=== PATIENT | female | born 1990 | race Caucasian/White ===

== ENCOUNTER 2017-06-25 17:03 | Emergency (ER) | payer MEDICAID ==
[~2017-06-25] VITALS: Ht 170.2 cm; Wt 113.4 kg
[~2017-06-25 17:03] MED LIST: ARIP30TA7 PO; CYCL-1 PO; GABA600T2 PO; HYDR-565 PO; LANTUS SQ; METO-292 PO; PROC-8 PO; PROP10TA10 PO; TRAZ300T2 PO
[2017-06-25 18:12] LABS: BASOPHILS % (AUTO) 0.4 % (0-1); EOSINOPHILS # (AUTO) 0.2 X10'3 (0-0.9); HEMATOCRIT 38.5 % (35.0-45.0); HEMOGLOBIN 13.3 g/dl (12.0-16.0); LYMPHOCYTES % (AUTO) 23.7 % (21-51); MEAN CORPUSCULAR HEMOGLOBIN 30.1 PG (27.0-31.0); MEAN CORPUSCULAR HGB CONC 34.6 % (33.0-36.5); MEAN CORPUSCULAR VOLUME 86.9 FL (78-98); MEAN PLATELET VOLUME 7.5 FL (7.4-10.4); MONOCYTES # (AUTO) 0.4 X10'3 (0-0.9); MONOCYTES % (AUTO) 5.4 % (2-12); NEUTROPHILS # (AUTO) 5.6 X10'3 (1.8-7.7); NEUTROPHILS % (AUTO) 68.5 % (42-75); PLATELET COUNT 272 X10'3 (140-440); RED BLOOD COUNT 4.43 X10'6 (4.20-5.60); RED CELL DISTRIBUTION WIDTH 13.9 % (11.5-14.5); WHITE BLOOD COUNT 8.2 X10'3 (4.5-11.0)
[2017-06-25 18:16] LABS: URINE HCG NEGATIVE (NEG)
[2017-06-25 18:18] LABS: CLARITY,URINE CLEAR (Clear); COLOR,URINE YELLOW (Yellow); GLUCOSE, URINE NEGATIVE (Neg); KETONES,URINE NEGATIVE (Neg); LEUKOCYTE ESTERASE ,URINE NEGATIVE (Neg); NITRITES, URINE NEGATIVE (Neg); OCCULT BLOOD,URINE NEGATIVE (Neg); PROTEIN,URINE NEGATIVE (Neg); UROBILINOGEN,URINE 0.2 E.U/dL (0.2-1.0)
[2017-06-25 18:22] LABS: INR 0.9 INR; PROTHROMBIN TIME 9.7 SECONDS (9.0-12.0)
[2017-06-25 18:22] LABS: UA COLLECTION TYPE NON-SPECIFIED
[2017-06-25 18:26] LABS: ALANINE AMINOTRANSFERASE 180 U/L (12-78); ALBUMIN 4.3 G/DL (3.4-5.0); ALBUMIN/GLOBULIN RATIO 1.1 (1.1-1.5); ALKALINE PHOSPHATASE 168 IU/L (46-116); ANION GAP 8 (8-16); ASPARTATE AMINO TRANSFERASE 89 U/L (10-37); BILIRUBIN,TOTAL 0.5 MG/DL (0.1-1.0); BLOOD UREA NITROGEN 12 MG/DL (7-18); BUN/CREATININE RATIO 16.9 (6.6-38.0); CALCIUM 10.1 MG/DL (8.5-10.1); CHLORIDE 101 MMOL/L (99-107); CREATININE 0.71 MG/DL (0.40-0.90); GLUCOSE 226 MG/DL (70-104); SODIUM 140 MMOL/L (135-145); TOTAL CARBON DIOXIDE 31.2 MMOL/L (24-32); TOTAL PROTEIN 8.2 G/DL (6.4-8.2); eGFR > 90 ML/MIN
[2017-06-25] MEDS ORDERED: morphine 5 MG/ML injection IV ONE (19:50)
[2017-06-25] MEDS ORDERED: diphenhydrAMINE 50 mg/ml inj IV ONE (19:50)
[2017-06-25] MEDS ORDERED: LORazepam 2 mg/ml vial IV ONE (19:50)
[2017-06-25] MEDS ORDERED: metoclopramide 5 mg/ml inj IV ONE (19:50)
[2017-06-25] MEDS ORDERED: normal saline 1000ML IV soln IVB ONE ×2 (19:50)
[2017-06-25 21:11] VITALS: BP 149/104
== END 2017-06-25 21:12 | disposition home or self-care (01) ==
LOC: ER 17:04
DX: R10.31 Right lower quadrant pain (principal); R11.2 Nausea with vomiting, unspecified; K21.9 Gastro-esophageal reflux disease without esophagitis; E11.9 Type 2 diabetes mellitus without complications; E78.00 Pure hypercholesterolemia, unspecified; G89.29 Other chronic pain; Z87.891 Personal history of nicotine dependence; Z90.49 Acquired absence of other specified parts of digestive tract; Z90.710 Acquired absence of both cervix and uterus; Z98.890 Other specified postprocedural states; Z79.4 Long term (current) use of insulin; Z88.0 Allergy status to penicillin; Z88.6 Allergy status to analgesic agent
CPT/HCPCS: 36415; 80053; 81003; 81025; 85025; 85610; 96361; 96374; 96375; 99284; J1200; J2060; J2270; J2765; J7030

== ENCOUNTER 2017-07-06 20:20 | Emergency (ER) | payer MEDICAID ==
[~2017-07-06] VITALS: Ht 170.2 cm; Wt 115.9 kg
[2017-07-06 21:42] LABS: BASOPHILS # (AUTO) 0.1 X10'3 (0-0.2); BASOPHILS % (AUTO) 1.1 % (0-1); EOSINOPHILS # (AUTO) 0.1 X10'3 (0-0.9); HEMATOCRIT 41.6 % (35.0-45.0); HEMOGLOBIN 14.4 g/dl (12.0-16.0); LYMPHOCYTES # (AUTO) 2.5 X10'3 (1.1-4.8); LYMPHOCYTES % (AUTO) 23.7 % (21-51); MEAN CORPUSCULAR HEMOGLOBIN 30.3 PG (27.0-31.0); MEAN CORPUSCULAR HGB CONC 34.5 % (33.0-36.5); MEAN CORPUSCULAR VOLUME 87.6 FL (78-98); MEAN PLATELET VOLUME 7.8 FL (7.4-10.4); MONOCYTES # (AUTO) 0.6 X10'3 (0-0.9); MONOCYTES % (AUTO) 5.9 % (2-12); NEUTROPHILS # (AUTO) 7.1 X10'3 (1.8-7.7); NEUTROPHILS % (AUTO) 68.3 % (42-75); PLATELET COUNT 298 X10'3 (140-440); RED BLOOD COUNT 4.74 X10'6 (4.20-5.60); RED CELL DISTRIBUTION WIDTH 13.9 % (11.5-14.5); WHITE BLOOD COUNT 10.4 X10'3 (4.5-11.0)
[2017-07-06 21:53] LABS: PROTHROMBIN TIME 9.9 SECONDS (9.0-12.0)
[2017-07-06 21:57] LABS: ALANINE AMINOTRANSFERASE 118 U/L (12-78); ALBUMIN 4.2 G/DL (3.4-5.0); ALKALINE PHOSPHATASE 185 IU/L (46-116); ANION GAP 10 (8-16); ASPARTATE AMINO TRANSFERASE 38 U/L (10-37); BILIRUBIN,TOTAL 0.5 MG/DL (0.1-1.0); BLOOD UREA NITROGEN 17 MG/DL (7-18); BUN/CREATININE RATIO 21.3 (6.6-38.0); CHLORIDE 96 MMOL/L (99-107); GLUCOSE 342 MG/DL (70-104); POTASSIUM 3.7 MMOL/L (3.5-5.1); SODIUM 134 MMOL/L (135-145); TOTAL CARBON DIOXIDE 27.7 MMOL/L (24-32); TOTAL PROTEIN 8.5 G/DL (6.4-8.2); eGFR 85 ML/MIN
[2017-07-06] MEDS ORDERED: LORazepam 2 mg/ml vial IV ONE (22:05)
[2017-07-06] MEDS ORDERED: normal saline 1000ML IV soln IVB ONE (22:05)
[2017-07-06] MEDS ORDERED: diphenhydrAMINE 50 mg/ml inj IV ONE (22:05)
[2017-07-06] MEDS ORDERED: haloperidol lactate 5mg/ml inj IM ONE (22:05)
[2017-07-06 22:18] LABS: CLARITY,URINE Clear (Clear); COLOR,URINE Yellow (Yellow); GLUCOSE, URINE 500 mg/dl (Neg); KETONES,URINE Trace mg/dl (Neg); LEUKOCYTE ESTERASE ,URINE Negative (Neg); NITRITES, URINE Negative (Neg); OCCULT BLOOD,URINE Negative (Neg); PROTEIN,URINE Negative (Neg); UA COLLECTION TYPE CLN CATCH MIDSTREAM
[2017-07-06 22:20] LABS: LIPASE 255 U/L (73-393)
[2017-07-06] MEDS ORDERED: LIDOcaine Viscous 15ml cup PO ONE (23:10)
[2017-07-06] MEDS ORDERED: mag hydrox/Alum hydrox/simeth 30ml oral suspension PO ONE (23:10)
[2017-07-06 23:59] VITALS: BP 130/93
== END 2017-07-07 00:08 | disposition home or self-care (01) ==
LOC: ER 20:20
DX: R10.12 Left upper quadrant pain (principal); R11.2 Nausea with vomiting, unspecified; K21.9 Gastro-esophageal reflux disease without esophagitis; E11.9 Type 2 diabetes mellitus without complications; E78.00 Pure hypercholesterolemia, unspecified; G89.29 Other chronic pain; Z90.49 Acquired absence of other specified parts of digestive tract; Z98.890 Other specified postprocedural states; Z79.4 Long term (current) use of insulin; Z79.899 Other long term (current) drug therapy; Z88.0 Allergy status to penicillin; Z88.6 Allergy status to analgesic agent
CPT/HCPCS: 36415; 80053; 81003; 85025; 85610; 93005; 96372; 96374; 96375; 99285; J1200; J1630; J2060; 83690; J7030

== ENCOUNTER 2017-07-15 11:07 | Emergency (ER) | payer MEDICAID ==
[~2017-07-15] VITALS: Ht 170.2 cm; Wt 111.0 kg
[~2017-07-15 11:07] MED LIST changes: -PROP10TA10 PO
[2017-07-15] MEDS ORDERED: dexamethasone sod phosphate 10mg/ml inj IV STA (12:22)
[2017-07-15] MEDS ORDERED: diazepam 5mg tablet PO ONE (12:25)
[2017-07-15] MEDS ORDERED: diphenhydrAMINE 50 mg/ml inj IV ONE (12:25)
[2017-07-15] MEDS ORDERED: normal saline 1000ML IV soln IVB ONE (12:25)
[2017-07-15] MEDS ORDERED: proCHLORperazine 10 MG/2 ml inj IV ONE (12:25)
[2017-07-15] MEDS ORDERED: PROC-8 PO (13:54)
[2017-07-15] MEDS ORDERED: DIAZ2TAB PO (13:54)
[2017-07-15 14:09] VITALS: BP 144/97
== END 2017-07-15 14:11 | disposition home or self-care (01) ==
LOC: ER 11:08
DX: R51 Headache (principal); M79.1 Myalgia; J02.9 Acute pharyngitis, unspecified; E78.00 Pure hypercholesterolemia, unspecified; K21.9 Gastro-esophageal reflux disease without esophagitis; E11.9 Type 2 diabetes mellitus without complications; G89.29 Other chronic pain; Z88.0 Allergy status to penicillin; Z88.5 Allergy status to narcotic agent; Z87.891 Personal history of nicotine dependence
CPT/HCPCS: 93005; 96361; 96374; 96375; 99284; J0780; J1100; J1200; J7030

== ENCOUNTER 2017-07-17 18:22 | Inpatient (IN) | payer MEDICAID ==
[~2017-07-17] VITALS: Ht 170.2 cm; Wt 109.9 kg
[~2017-07-17 18:22] MED LIST changes: +DIAZ2TAB PO
[2017-07-17 19:02] LABS: CLARITY,URINE Clear (Clear); COLOR,URINE Yellow (Yellow); GLUCOSE, URINE >=1000 mg/dl (Neg); KETONES,URINE Negative (Neg); LEUKOCYTE ESTERASE ,URINE Negative (Neg); NITRITES, URINE Negative (Neg); OCCULT BLOOD,URINE Negative (Neg); PROTEIN,URINE Negative (Neg); UROBILINOGEN,URINE 0.2 E.U/dL (0.2-1.0)
[2017-07-17 19:10] LABS: BASOPHILS % (AUTO) 0.5 % (0-1); EOSINOPHILS # (AUTO) 0.1 X10'3 (0-0.9); EOSINOPHILS % (AUTO) 0.9 % (0-6); HEMATOCRIT 39.1 % (35.0-45.0); HEMOGLOBIN 13.8 g/dl (12.0-16.0); LYMPHOCYTES # (AUTO) 2.1 X10'3 (1.1-4.8); LYMPHOCYTES % (AUTO) 22.1 % (21-51); MEAN CORPUSCULAR HEMOGLOBIN 30.6 PG (27.0-31.0); MEAN CORPUSCULAR HGB CONC 35.3 % (33.0-36.5); MEAN CORPUSCULAR VOLUME 86.8 FL (78-98); MEAN PLATELET VOLUME 7.9 FL (7.4-10.4); MONOCYTES # (AUTO) 0.5 X10'3 (0-0.9); MONOCYTES % (AUTO) 5.3 % (2-12); NEUTROPHILS # (AUTO) 6.8 X10'3 (1.8-7.7); NEUTROPHILS % (AUTO) 71.2 % (42-75); PLATELET COUNT 306 X10'3 (140-440); RED CELL DISTRIBUTION WIDTH 13.5 % (11.5-14.5); WHITE BLOOD COUNT 9.6 X10'3 (4.5-11.0)
[2017-07-17 19:19] LABS: UA COLLECTION TYPE CLN CATCH MIDSTREAM
[2017-07-17 19:20] LABS: BACTERIA,URINE FEW /HPF (Neg); RBC,URINE 0-2 /HPF (0-2); SQUAMOUS EPITHELIAL CELL,UR MODERATE /LPF (FEW); WBC,URINE 0-4 /HPF (0-4)
[2017-07-17 19:21] LABS: PROTHROMBIN TIME 9.9 SECONDS (9.0-12.0)
[2017-07-17 19:33] LABS: ALANINE AMINOTRANSFERASE 114 U/L (12-78); ALBUMIN 3.9 G/DL (3.4-5.0); ALBUMIN/GLOBULIN RATIO 1.1 (1.1-1.5); ALKALINE PHOSPHATASE 180 IU/L (46-116); ANION GAP 12 (8-16); ASPARTATE AMINO TRANSFERASE 40 U/L (10-37); BILIRUBIN,TOTAL 0.6 MG/DL (0.1-1.0); BLOOD UREA NITROGEN 15 MG/DL (7-18); BUN/CREATININE RATIO 16.7 (6.6-38.0); CALCIUM 9.3 MG/DL (8.5-10.1); CHLORIDE 97 MMOL/L (99-107); SODIUM 134 MMOL/L (135-145); TOTAL CARBON DIOXIDE 24.8 MMOL/L (24-32); TOTAL PROTEIN 7.6 G/DL (6.4-8.2); eGFR 75 ML/MIN
[2017-07-17 19:35] LABS: LIPASE 2079 U/L (73-393)
[2017-07-17] MEDS ORDERED: acetaminophen 325mg tablet PO ONE (20:00)
[2017-07-17] MEDS ORDERED: naproxen 500mg tablet PO ONE (20:00)
[2017-07-17 20:06] LABS: GLUCOSE 489 MG/DL (70-104)
[2017-07-17] MEDS ORDERED: insulin regular, human 10 units/0.1 ml syringe SQ ONE (20:10)
[2017-07-17] MEDS ORDERED: normal saline 1000ml 1,000 ML IV ONE (20:15)
[2017-07-17 20:36] LABS: CHOL/HDL RATIO 10.3 (0.00-4.99); CHOLESTEROL 185 MG/DL (0-200); HDL CHOLESTEROL 18 MG/DL (35-60); LDL CHOLESTEROL 107 MG/DL (50-100); TRIGLYCERIDES 333 MG/DL (20-135)
[2017-07-17] MEDS ORDERED: morphine 2 MG/ML inj. syringe IV ONE (21:05)
[2017-07-17] MEDS ORDERED: potassium Cl 40MEQ/NS 500ml 500 ML IV PRN ×2 (21:45)
[2017-07-17] MEDS ORDERED: acetaminophen 325mg tablet PO PRN (21:45)
[2017-07-17] MEDS ORDERED: magnesium Cl slow-release 64mg tablet PO PRN (21:45)
[2017-07-17] MEDS ORDERED: magnesium hydroxide 30ml (MOM) UD suspension PO PRN (21:45)
[2017-07-17] MEDS ORDERED: magnesium 2GM in 50ml NS 50 ML IV PRN (21:45)
[2017-07-17] MEDS ORDERED: mag hydrox/Alum hydrox/simeth 30ml oral suspension PO PRN (21:45)
[2017-07-17] MEDS ORDERED: HYDROmorphone 1 mg/ml syringe IV PRN (21:45)
[2017-07-17] MEDS ORDERED: magnesium 4gm in 100ml NS 100 ML IV PRN (21:45)
[2017-07-17] MEDS ORDERED: potassium Cl 20 mEq SR tablet PO PRN ×2 (21:45)
[2017-07-17 22:20] VITALS: BP 156/102
[2017-07-17] MEDS: normal saline 1000ml 1,000 ML IV SCH (22:49)
[2017-07-17] MEDS: aripiprazole 5mg tablet PO SCH (22:59)
[2017-07-17] MEDS: traZODone 150mg tablet PO SCH (23:00)
[2017-07-17] MEDS: gabapentin 400mg capsule PO SCH (23:21)
[2017-07-17] MEDS: metoclopramide 10mg tablet PO SCH (23:21)
[2017-07-17] MEDS: HYDROmorphone 1 mg/ml syringe IV PRN (23:23)
[2017-07-17] MEDS: ondansetron/PF 4mg/2ml inj IV PRN (23:29)
[2017-07-17] MEDS ORDERED: glucagon, human recombinant 1mg kit SUBCUT PRN (23:50)
[2017-07-17] MEDS ORDERED: dextrose 50%-water 50ml dispensing syringe IV PRN ×2 (23:50)
[2017-07-17] MEDS ORDERED: MESSAGE TO PHARMACY PO ONE (23:50)
[2017-07-17] MEDS ORDERED: dextrose ORAL solution 15 GM/59 ML bottle PO PRN ×2 (23:50)
[2017-07-18] VITALS: BP 144/97
[2017-07-18] MEDS ORDERED: Insulin Detemir pen SQ ONE (00:27)
[2017-07-18] MEDS ORDERED: insulin Lispro (HumaLOG) vial - multi-dose SQ ONE (00:27)
[2017-07-18] MEDS: Insulin Detemir pen SQ SCH ×2 (01:04→21:09)
[2017-07-18] MEDS: insulin Lispro (HumaLOG) vial - multi-dose SQ SCH ×4 (01:05→18:51)
[2017-07-18] MEDS: HYDROmorphone 1 mg/ml syringe IV PRN ×3 (03:30→11:57)
[2017-07-18] MEDS: normal saline 1000ml 1,000 ML IV SCH ×4 (04:55→23:37)
[2017-07-18 06:40] LABS: BASOPHILS % (AUTO) 0.5 % (0-1); EOSINOPHILS # (AUTO) 0.1 X10'3 (0-0.9); EOSINOPHILS % (AUTO) 1.7 % (0-6); HEMATOCRIT 39.6 % (35.0-45.0); HEMOGLOBIN 13.6 g/dl (12.0-16.0); LYMPHOCYTES # (AUTO) 2.4 X10'3 (1.1-4.8); LYMPHOCYTES % (AUTO) 31.2 % (21-51); MEAN CORPUSCULAR HEMOGLOBIN 29.9 PG (27.0-31.0); MEAN CORPUSCULAR HGB CONC 34.2 % (33.0-36.5); MEAN CORPUSCULAR VOLUME 87.2 FL (78-98); MEAN PLATELET VOLUME 7.6 FL (7.4-10.4); MONOCYTES # (AUTO) 0.6 X10'3 (0-0.9); MONOCYTES % (AUTO) 7.5 % (2-12); NEUTROPHILS # (AUTO) 4.6 X10'3 (1.8-7.7); NEUTROPHILS % (AUTO) 59.1 % (42-75); PLATELET COUNT 263 X10'3 (140-440); RED BLOOD COUNT 4.54 X10'6 (4.20-5.60); RED CELL DISTRIBUTION WIDTH 13.8 % (11.5-14.5); WHITE BLOOD COUNT 7.8 X10'3 (4.5-11.0)
[2017-07-18] MEDS: ondansetron/PF 4mg/2ml inj IV PRN ×3 (07:01→20:26)
[2017-07-18 07:02] LABS: ALANINE AMINOTRANSFERASE 92 U/L (12-78); ALBUMIN 3.6 G/DL (3.4-5.0); ALBUMIN/GLOBULIN RATIO 1.1 (1.1-1.5); ALKALINE PHOSPHATASE 136 IU/L (46-116); ANION GAP 8 (8-16); ASPARTATE AMINO TRANSFERASE 31 U/L (10-37); BILIRUBIN,TOTAL 0.5 MG/DL (0.1-1.0); BLOOD UREA NITROGEN 13 MG/DL (7-18); BUN/CREATININE RATIO 16.3 (6.6-38.0); CALCIUM 8.9 MG/DL (8.5-10.1); CHLORIDE 106 MMOL/L (99-107); CHOL/HDL RATIO 9.6 (0.00-4.99); CHOLESTEROL 182 MG/DL (0-200); GLUCOSE 253 MG/DL (70-104); HDL CHOLESTEROL 19 MG/DL (35-60); LDL CHOLESTEROL 95 MG/DL (50-100); MAGNESIUM 1.6 MG/DL (1.5-2.4); POTASSIUM 4.1 MMOL/L (3.5-5.1); SODIUM 142 MMOL/L (135-145); TOTAL CARBON DIOXIDE 28.5 MMOL/L (24-32); TRIGLYCERIDES 445 MG/DL (20-135); eGFR 85 ML/MIN
[2017-07-18 07:14] VITALS: BP 128/74
[2017-07-18] MEDS: K and/or MAG REPLACEMENT MC SCH (07:54)
[2017-07-18] MEDS: gabapentin 400mg capsule PO SCH ×3 (07:56→23:37)
[2017-07-18] MEDS: metoclopramide 10mg tablet PO SCH ×3 (07:56→23:37)
[2017-07-18] MEDS: heparin, porcine 5000 units/ml vial SQ SCH ×2 (07:58→20:24)
[2017-07-18 12:00] VITALS: BP 132/80
[2017-07-18] MEDS ORDERED: HYDROcodone/acetaminophen 10/325mg tab PO PRN (13:10)
[2017-07-18] MEDS ORDERED: HYDROmorphone 1 mg/ml syringe IV PRN (13:15)
[2017-07-18] MEDS ORDERED: HYDROmorphone inj. 0.5 MG/0.5 ML DISP.SYRIN ONE (15:18)
[2017-07-18] MEDS: HYDROmorphone inj. 0.5 MG/0.5 ML DISP.SYRIN IV PRN ×2 (18:59→22:10)
[2017-07-18 19:00] VITALS: BP 144/89
[2017-07-18] MEDS: traZODone 150mg tablet PO SCH (20:59)
[2017-07-18] MEDS: aripiprazole 5mg tablet PO SCH (20:59)
[2017-07-18] MEDS ORDERED: Insulin Detemir pen SQ SCH (21:00)
[2017-07-19] VITALS: BP 153/96
[2017-07-19] MEDS: proCHLORperazine 10 MG/2 ml inj IV PRN ×3 (01:27→19:13)
[2017-07-19] MEDS: HYDROmorphone inj. 0.5 MG/0.5 ML DISP.SYRIN IV PRN ×7 (01:30→22:18)
[2017-07-19 07:00] VITALS: BP 128/80
[2017-07-19 07:10] LABS: BASOPHILS % (AUTO) 0.3 % (0-1); EOSINOPHILS # (AUTO) 0.1 X10'3 (0-0.9); EOSINOPHILS % (AUTO) 1.3 % (0-6); HEMATOCRIT 38.7 % (35.0-45.0); HEMOGLOBIN 13.2 g/dl (12.0-16.0); LYMPHOCYTES # (AUTO) 1.1 X10'3 (1.1-4.8); LYMPHOCYTES % (AUTO) 11.8 % (21-51); MEAN CORPUSCULAR HEMOGLOBIN 30.1 PG (27.0-31.0); MEAN CORPUSCULAR HGB CONC 34.2 % (33.0-36.5); MEAN PLATELET VOLUME 7.8 FL (7.4-10.4); MONOCYTES # (AUTO) 0.6 X10'3 (0-0.9); MONOCYTES % (AUTO) 6.7 % (2-12); NEUTROPHILS # (AUTO) 7.3 X10'3 (1.8-7.7); NEUTROPHILS % (AUTO) 79.9 % (42-75); PLATELET COUNT 254 X10'3 (140-440); RED CELL DISTRIBUTION WIDTH 13.6 % (11.5-14.5); WHITE BLOOD COUNT 9.2 X10'3 (4.5-11.0)
[2017-07-19] MEDS: normal saline 1000ml 1,000 ML IV SCH ×3 (07:11→21:48)
[2017-07-19 07:40] LABS: ALANINE AMINOTRANSFERASE 114 U/L (12-78); ALBUMIN 3.7 G/DL (3.4-5.0); ALBUMIN/GLOBULIN RATIO 1.1 (1.1-1.5); ALKALINE PHOSPHATASE 124 IU/L (46-116); ANION GAP 6 (8-16); ASPARTATE AMINO TRANSFERASE 48 U/L (10-37); BILIRUBIN,TOTAL 0.7 MG/DL (0.1-1.0); BLOOD UREA NITROGEN 8 MG/DL (7-18); BUN/CREATININE RATIO 13.3 (6.6-38.0); CALCIUM 8.9 MG/DL (8.5-10.1); CHLORIDE 102 MMOL/L (99-107); GLUCOSE 274 MG/DL (70-104); MAGNESIUM 1.6 MG/DL (1.5-2.4); POTASSIUM 4.2 MMOL/L (3.5-5.1); SODIUM 138 MMOL/L (135-145); TOTAL CARBON DIOXIDE 30.3 MMOL/L (24-32); TOTAL PROTEIN 7.1 G/DL (6.4-8.2); eGFR > 90 ML/MIN
[2017-07-19 07:41] LABS: LIPASE 5687 U/L (73-393)
[2017-07-19] MEDS: K and/or MAG REPLACEMENT MC SCH (08:00)
[2017-07-19] MEDS: metoclopramide 10mg tablet PO SCH ×2 (08:16→15:29)
[2017-07-19] MEDS: gabapentin 400mg capsule PO SCH ×2 (08:16→15:29)
[2017-07-19] MEDS: heparin, porcine 5000 units/ml vial SQ SCH ×2 (08:16→20:13)
[2017-07-19] MEDS: insulin Lispro (HumaLOG) vial - multi-dose SQ SCH ×4 (08:18→21:53)
[2017-07-19] MEDS: ondansetron/PF 4mg/2ml inj IV PRN (10:50)
[2017-07-19 11:22] VITALS: BP 127/92
[2017-07-19 11:24] LABS: HBSAG SCREEN Negative (Negative); HEP B CORE AB, IGM Negative (Negative); HEPATITIS C ANTIBODY 0.1 s/co ratio (0.0-0.9)
[2017-07-19 19:00] VITALS: BP 150/93
[2017-07-19] MEDS: aripiprazole 5mg tablet PO SCH (21:46)
[2017-07-19] MEDS: traZODone 150mg tablet PO SCH (21:46)
[2017-07-19] MEDS: Insulin Detemir pen SQ SCH (21:54)
[2017-07-20] MEDS: gabapentin 400mg capsule PO SCH ×3 (01:00→16:18)
[2017-07-20] MEDS: metoclopramide 10mg tablet PO SCH ×3 (01:00→16:17)
[2017-07-20] MEDS: HYDROmorphone inj. 0.5 MG/0.5 ML DISP.SYRIN IV PRN ×2 (02:15→16:20)
[2017-07-20] MEDS ORDERED: HYDROmorphone inj. 0.5 MG/0.5 ML DISP.SYRIN IV PRN (03:00)
[2017-07-20] MEDS: normal saline 1000ml 1,000 ML IV SCH ×3 (04:55→19:40)
[2017-07-20 06:03] LABS: BASOPHILS % (AUTO) 0.1 % (0-1); EOSINOPHILS % (AUTO) 0 % (0-6); HEMATOCRIT 36.2 % (35.0-45.0); HEMOGLOBIN 12.5 g/dl (12.0-16.0); LYMPHOCYTES # (AUTO) 0.7 X10'3 (1.1-4.8); LYMPHOCYTES % (AUTO) 5.1 % (21-51); MEAN CORPUSCULAR HEMOGLOBIN 30.2 PG (27.0-31.0); MEAN CORPUSCULAR HGB CONC 34.4 % (33.0-36.5); MEAN CORPUSCULAR VOLUME 87.9 FL (78-98); MEAN PLATELET VOLUME 7.7 FL (7.4-10.4); MONOCYTES # (AUTO) 0.9 X10'3 (0-0.9); MONOCYTES % (AUTO) 6.5 % (2-12); NEUTROPHILS % (AUTO) 88.3 % (42-75); PLATELET COUNT 239 X10'3 (140-440); RED BLOOD COUNT 4.12 X10'6 (4.20-5.60); RED CELL DISTRIBUTION WIDTH 13.6 % (11.5-14.5); WHITE BLOOD COUNT 13.6 X10'3 (4.5-11.0)
[2017-07-20 06:39] LABS: ALANINE AMINOTRANSFERASE 99 U/L (12-78); ALBUMIN 3.6 G/DL (3.4-5.0); ALKALINE PHOSPHATASE 121 IU/L (46-116); ANION GAP 7 (8-16); ASPARTATE AMINO TRANSFERASE 41 U/L (10-37); BILIRUBIN,TOTAL 0.8 MG/DL (0.1-1.0); BLOOD UREA NITROGEN 7 MG/DL (7-18); CALCIUM 8.9 MG/DL (8.5-10.1); CHLORIDE 102 MMOL/L (99-107); GLUCOSE 249 MG/DL (70-104); MAGNESIUM 1.8 MG/DL (1.5-2.4); SODIUM 141 MMOL/L (135-145); TOTAL PROTEIN 7.2 G/DL (6.4-8.2); eGFR > 90 ML/MIN
[2017-07-20 07:03] LABS: LIPASE 2510 U/L (73-393)
[2017-07-20 08:00] VITALS: BP 145/72
[2017-07-20] MEDS: K and/or MAG REPLACEMENT MC SCH (08:00)
[2017-07-20] MEDS: ondansetron/PF 4mg/2ml inj IV PRN (08:32)
[2017-07-20] MEDS: insulin Lispro (HumaLOG) vial - multi-dose SQ SCH ×2 (08:41→13:51)
[2017-07-20] MEDS: heparin, porcine 5000 units/ml vial SQ SCH ×2 (08:43→20:42)
[2017-07-20 12:41] VITALS: BP 129/85
[2017-07-20] MEDS ORDERED: iohexol 300mg/ml 100ml inj. ONE (16:22)
[2017-07-20 20:00] VITALS: BP 159/96
[2017-07-20] MEDS: aripiprazole 5mg tablet PO SCH (20:36)
[2017-07-20] MEDS: Insulin Detemir pen SQ SCH (20:42)
[2017-07-20] MEDS: traZODone 150mg tablet PO SCH (21:00)
[2017-07-21] VITALS: BP 152/75
[2017-07-21] MEDS: ondansetron/PF 4mg/2ml inj IV PRN ×3 (00:05→21:13)
[2017-07-21] MEDS: HYDROmorphone inj. 0.5 MG/0.5 ML DISP.SYRIN IV PRN ×3 (00:05→17:39)
[2017-07-21] MEDS: proCHLORperazine 10 MG/2 ml inj IV PRN (03:54)
[2017-07-21] MEDS: normal saline 1000ml 1,000 ML IV SCH ×2 (03:58→21:21)
[2017-07-21 06:16] LABS: BASOPHILS % (AUTO) 0.2 % (0-1); EOSINOPHILS # (AUTO) 0.1 X10'3 (0-0.9); HEMATOCRIT 36.5 % (35.0-45.0); HEMOGLOBIN 12.4 g/dl (12.0-16.0); LYMPHOCYTES # (AUTO) 1.7 X10'3 (1.1-4.8); LYMPHOCYTES % (AUTO) 16.5 % (21-51); MEAN CORPUSCULAR HEMOGLOBIN 29.7 PG (27.0-31.0); MEAN CORPUSCULAR HGB CONC 33.9 % (33.0-36.5); MEAN CORPUSCULAR VOLUME 87.7 FL (78-98); MEAN PLATELET VOLUME 7.9 FL (7.4-10.4); MONOCYTES # (AUTO) 0.7 X10'3 (0-0.9); NEUTROPHILS # (AUTO) 7.6 X10'3 (1.8-7.7); NEUTROPHILS % (AUTO) 75.3 % (42-75); PLATELET COUNT 242 X10'3 (140-440); RED BLOOD COUNT 4.16 X10'6 (4.20-5.60); RED CELL DISTRIBUTION WIDTH 13.8 % (11.5-14.5); WHITE BLOOD COUNT 10.1 X10'3 (4.5-11.0)
[2017-07-21 07:02] LABS: ALANINE AMINOTRANSFERASE 82 U/L (12-78); ALBUMIN 3.5 G/DL (3.4-5.0); ALBUMIN/GLOBULIN RATIO 0.9 (1.1-1.5); ALKALINE PHOSPHATASE 115 IU/L (46-116); ANION GAP 9 (8-16); BLOOD UREA NITROGEN 12 MG/DL (7-18); CALCIUM 8.9 MG/DL (8.5-10.1); CHLORIDE 101 MMOL/L (99-107); GLUCOSE 178 MG/DL (70-104); LIPASE 1067 U/L (73-393); MAGNESIUM 1.8 MG/DL (1.5-2.4); SODIUM 142 MMOL/L (135-145); TOTAL CARBON DIOXIDE 32.2 MMOL/L (24-32); TOTAL PROTEIN 7.2 G/DL (6.4-8.2); eGFR > 90 ML/MIN
[2017-07-21 07:05] LABS: ASPARTATE AMINO TRANSFERASE 39 U/L (10-37); POTASSIUM 3.6 MMOL/L (3.5-5.1)
[2017-07-21] MEDS: gabapentin 400mg capsule PO SCH ×3 (07:45→17:00)
[2017-07-21] MEDS: metoclopramide 10mg tablet PO SCH ×3 (07:45→17:01)
[2017-07-21] MEDS: heparin, porcine 5000 units/ml vial SQ SCH ×2 (07:46→21:04)
[2017-07-21] MEDS: insulin Lispro (HumaLOG) vial - multi-dose SQ SCH ×3 (07:51→21:11)
[2017-07-21] MEDS: K and/or MAG REPLACEMENT MC SCH (07:53)
[2017-07-21 07:57] VITALS: BP 150/87
[2017-07-21 12:33] VITALS: BP 149/90
[2017-07-21 15:20] LABS: HBSAG SCREEN Negative (Negative); HEP B CORE AB, IGM Negative (Negative); HEPATITIS C ANTIBODY 0.1 s/co ratio (0.0-0.9)
[2017-07-21] MEDS: aripiprazole 5mg tablet PO SCH (20:56)
[2017-07-21] MEDS: Insulin Detemir pen SQ SCH (21:12)
[2017-07-21] MEDS: traZODone 150mg tablet PO SCH (21:21)
[2017-07-22] MEDS: HYDROmorphone inj. 0.5 MG/0.5 ML DISP.SYRIN IV PRN ×3 (03:33→12:50)
[2017-07-22 05:59] LABS: BASOPHILS % (AUTO) 0.4 % (0-1); EOSINOPHILS # (AUTO) 0.2 X10'3 (0-0.9); EOSINOPHILS % (AUTO) 1.7 % (0-6); HEMATOCRIT 36.4 % (35.0-45.0); HEMOGLOBIN 12.8 g/dl (12.0-16.0); LYMPHOCYTES # (AUTO) 2.4 X10'3 (1.1-4.8); LYMPHOCYTES % (AUTO) 22.8 % (21-51); MEAN CORPUSCULAR HEMOGLOBIN 30.5 PG (27.0-31.0); MEAN CORPUSCULAR HGB CONC 35.3 % (33.0-36.5); MEAN CORPUSCULAR VOLUME 86.6 FL (78-98); MEAN PLATELET VOLUME 7.5 FL (7.4-10.4); MONOCYTES # (AUTO) 0.8 X10'3 (0-0.9); MONOCYTES % (AUTO) 7.7 % (2-12); NEUTROPHILS # (AUTO) 7.1 X10'3 (1.8-7.7); NEUTROPHILS % (AUTO) 67.4 % (42-75); PLATELET COUNT 248 X10'3 (140-440); RED BLOOD COUNT 4.21 X10'6 (4.20-5.60); RED CELL DISTRIBUTION WIDTH 13.8 % (11.5-14.5); WHITE BLOOD COUNT 10.6 X10'3 (4.5-11.0)
[2017-07-22 06:55] VITALS: BP 148/98
[2017-07-22] MEDS: gabapentin 400mg capsule PO SCH ×3 (07:36→15:47)
[2017-07-22] MEDS: heparin, porcine 5000 units/ml vial SQ SCH ×2 (07:36→20:52)
[2017-07-22] MEDS: metoclopramide 10mg tablet PO SCH ×3 (07:36→15:47)
[2017-07-22] MEDS: K and/or MAG REPLACEMENT MC SCH (07:44)
[2017-07-22 08:00] LABS: ALANINE AMINOTRANSFERASE 63 U/L (12-78); ALBUMIN 3.6 G/DL (3.4-5.0); ALKALINE PHOSPHATASE 115 IU/L (46-116); ANION GAP 9 (8-16); ASPARTATE AMINO TRANSFERASE 18 U/L (10-37); BILIRUBIN,TOTAL 0.9 MG/DL (0.1-1.0); BLOOD UREA NITROGEN 16 MG/DL (7-18); BUN/CREATININE RATIO 22.9 (6.6-38.0); CALCIUM 9.1 MG/DL (8.5-10.1); CHLORIDE 103 MMOL/L (99-107); GLUCOSE 133 MG/DL (70-104); LIPASE 827 U/L (73-393); MAGNESIUM 1.8 MG/DL (1.5-2.4); SODIUM 143 MMOL/L (135-145); TOTAL CARBON DIOXIDE 30.6 MMOL/L (24-32); TOTAL PROTEIN 7.3 G/DL (6.4-8.2); eGFR > 90 ML/MIN
[2017-07-22] MEDS ORDERED: magnesium 4gm in 100ml NS 100 ML IV PRN (08:50)
[2017-07-22] MEDS ORDERED: magnesium 2GM in 50ml NS 50 ML IV PRN (08:50)
[2017-07-22] MEDS ORDERED: potassium Cl 40MEQ/NS 500ml 500 ML IV PRN ×2 (08:50)
[2017-07-22] MEDS ORDERED: magnesium Cl slow-release 64mg tablet PO PRN (08:50)
[2017-07-22] MEDS: ondansetron/PF 4mg/2ml inj IV PRN ×2 (09:19→16:50)
[2017-07-22] MEDS: potassium Cl 20 mEq SR tablet PO PRN ×3 (09:21→21:00)
[2017-07-22] MEDS: insulin Lispro (HumaLOG) vial - multi-dose SQ SCH ×2 (09:24→13:32)
[2017-07-22 11:00] VITALS: BP 132/87
[2017-07-22] MEDS: normal saline 1000ml 1,000 ML IV SCH (15:47)
[2017-07-22 18:00] VITALS: BP 158/105
[2017-07-22] MEDS: aripiprazole 5mg tablet PO SCH (20:52)
[2017-07-22] MEDS: traZODone 150mg tablet PO SCH (20:52)
[2017-07-22] MEDS: morphine 2 MG/ML inj. syringe IV PRN (20:53)
[2017-07-22] MEDS: Insulin Detemir pen SQ SCH (20:59)
[2017-07-23] VITALS: BP 132/87
[2017-07-23] MEDS: metoclopramide 10mg tablet PO SCH ×2 (00:13→07:35)
[2017-07-23] MEDS: gabapentin 400mg capsule PO SCH ×2 (00:13→07:35)
[2017-07-23] MEDS: potassium Cl 20 mEq SR tablet PO PRN ×2 (00:13→05:15)
[2017-07-23] MEDS: ondansetron/PF 4mg/2ml inj IV PRN ×2 (00:13→07:35)
[2017-07-23] MEDS: morphine 2 MG/ML inj. syringe IV PRN ×2 (03:29→07:36)
[2017-07-23 06:24] VITALS: BP 132/87
[2017-07-23 06:42] VITALS: BP 130/80
[2017-07-23] MEDS: K and/or MAG REPLACEMENT MC SCH (07:50)
[2017-07-23] MEDS: heparin, porcine 5000 units/ml vial SQ SCH (07:50)
[2017-07-23 08:04] LABS: ALANINE AMINOTRANSFERASE 55 U/L (12-78); ALBUMIN 3.5 G/DL (3.4-5.0); ALKALINE PHOSPHATASE 110 IU/L (46-116); ANION GAP 9 (8-16); ASPARTATE AMINO TRANSFERASE 29 U/L (10-37); BILIRUBIN,TOTAL 0.8 MG/DL (0.1-1.0); BLOOD UREA NITROGEN 14 MG/DL (7-18); BUN/CREATININE RATIO 23.3 (6.6-38.0); CALCIUM 9.2 MG/DL (8.5-10.1); CHLORIDE 105 MMOL/L (99-107); GLUCOSE 134 MG/DL (70-104); LIPASE 728 U/L (73-393); MAGNESIUM 1.6 MG/DL (1.5-2.4); POTASSIUM 3.9 MMOL/L (3.5-5.1); SODIUM 141 MMOL/L (135-145); TOTAL CARBON DIOXIDE 26.9 MMOL/L (24-32); eGFR > 90 ML/MIN
[2017-07-23] MEDS: insulin Lispro (HumaLOG) vial - multi-dose SQ SCH (09:14)
[2017-07-23 11:05] VITALS: BP 140/83
[2017-07-23] MEDS ORDERED: OXYC-658 PO (12:07)
[2017-07-28] MEDS ORDERED: FAMO-128 PO (23:06)
== END 2017-07-23 14:00 | disposition home or self-care (01) | DRG 282 ==
LOC: ER 18:22 → ED HOLD 21:42 → MED 3N 22:30
PROVIDERS: ADMIT Internal Medicine; ATTEND Family Medicine
DX: K85.00 Idiopathic acute pancreatitis without necrosis or infection (principal); K31.84 Gastroparesis; E11.43 Type 2 diabetes mellitus with diabetic autonomic (poly)neuropathy; K76.0 Fatty (change of) liver, not elsewhere classified; E11.65 Type 2 diabetes mellitus with hyperglycemia; K21.9 Gastro-esophageal reflux disease without esophagitis; E78.5 Hyperlipidemia, unspecified; E78.1 Pure hyperglyceridemia; K86.1 Other chronic pancreatitis; J98.11 Atelectasis; E87.6 Hypokalemia; E78.00 Pure hypercholesterolemia, unspecified; N20.0 Calculus of kidney; E66.9 Obesity, unspecified; F32.9 Major depressive disorder, single episode, unspecified; F41.9 Anxiety disorder, unspecified; G47.00 Insomnia, unspecified; G89.29 Other chronic pain; Z90.49 Acquired absence of other specified parts of digestive tract; Z90.710 Acquired absence of both cervix and uterus; Z88.0 Allergy status to penicillin; Z88.6 Allergy status to analgesic agent; Z79.4 Long term (current) use of insulin; Z79.899 Other long term (current) drug therapy; Z87.891 Personal history of nicotine dependence; Z83.3 Family history of diabetes mellitus; Z68.37 Body mass index [BMI] 37.0-37.9, adult
CPT/HCPCS: 36415; 71045; 74176; 74177; 76700; 80053; 80061; 81001; 82948; 83036; 83690; 83735; 84132; 84439; 84443; 85025; 85610; 86140; 86705; 86706; 86709; 86803; 87070; 87340; 96360; 96372; 99285; J0780; J1170; J1644; J1815; J2270; J2405; J7030; J8597; Q9967

== ENCOUNTER 2017-07-25 13:39 | Emergency (ER) | payer MEDICAID ==
[~2017-07-25] VITALS: Ht 170.2 cm; Wt 115.9 kg
[~2017-07-25 13:39] MED LIST changes: -CYCL-1 PO; -HYDR-565 PO; +OXYC-658 PO
[2017-07-25 14:31] LABS: BASOPHILS # (AUTO) 0.1 X10'3 (0-0.2); BASOPHILS % (AUTO) 0.6 % (0-1); EOSINOPHILS # (AUTO) 0.2 X10'3 (0-0.9); HEMATOCRIT 39.2 % (35.0-45.0); HEMOGLOBIN 13.7 g/dl (12.0-16.0); LYMPHOCYTES # (AUTO) 1.9 X10'3 (1.1-4.8); LYMPHOCYTES % (AUTO) 23.5 % (21-51); MEAN CORPUSCULAR HEMOGLOBIN 30.9 PG (27.0-31.0); MEAN CORPUSCULAR HGB CONC 35.1 % (33.0-36.5); MEAN CORPUSCULAR VOLUME 88.1 FL (78-98); MEAN PLATELET VOLUME 7.7 FL (7.4-10.4); MONOCYTES # (AUTO) 0.6 X10'3 (0-0.9); MONOCYTES % (AUTO) 6.8 % (2-12); NEUTROPHILS # (AUTO) 5.4 X10'3 (1.8-7.7); NEUTROPHILS % (AUTO) 66.1 % (42-75); PLATELET COUNT 292 X10'3 (140-440); RED BLOOD COUNT 4.45 X10'6 (4.20-5.60); RED CELL DISTRIBUTION WIDTH 14.2 % (11.5-14.5); WHITE BLOOD COUNT 8.1 X10'3 (4.5-11.0)
[2017-07-25 14:39] LABS: PROTHROMBIN TIME 10.2 SECONDS (9.0-12.0)
[2017-07-25 14:45] LABS: ALANINE AMINOTRANSFERASE 83 U/L (12-78); ALKALINE PHOSPHATASE 125 IU/L (46-116); AMYLASE 52 U/L (25-115); ANION GAP 8 (8-16); ASPARTATE AMINO TRANSFERASE 46 U/L (10-37); BILIRUBIN,TOTAL 0.7 MG/DL (0.1-1.0); BLOOD UREA NITROGEN 14 MG/DL (7-18); BUN/CREATININE RATIO 17.5 (6.6-38.0); CALCIUM 9.6 MG/DL (8.5-10.1); CHLORIDE 104 MMOL/L (99-107); GLUCOSE 183 MG/DL (70-104); LIPASE 1203 U/L (73-393); POTASSIUM 3.6 MMOL/L (3.5-5.1); SODIUM 142 MMOL/L (135-145); TOTAL CARBON DIOXIDE 30.2 MMOL/L (24-32); TOTAL PROTEIN 7.9 G/DL (6.4-8.2); eGFR 85 ML/MIN
[2017-07-25] MEDS ORDERED: HYDROmorphone 1 mg/ml syringe IV PRN (15:55)
[2017-07-25] MEDS ORDERED: metoclopramide 5 mg/ml inj IV ONE (15:55)
[2017-07-25] MEDS ORDERED: glycopyrrolate 0.2mg/ml inj IV ONE (15:55)
[2017-07-25] MEDS ORDERED: LORazepam 2 mg/ml vial IV ONE ×2 (15:55→17:40)
[2017-07-25] MEDS ORDERED: normal saline 1000ML IV soln IVB ONE ×2 (15:55)
[2017-07-25] MEDS ORDERED: diphenhydrAMINE 50 mg/ml inj IV ONE (15:55)
[2017-07-25] MEDS ORDERED: morphine 2 MG/ML inj. syringe IV ONE ×2 (16:35→17:40)
[2017-07-25 18:53] VITALS: BP 149/86
[2017-07-26] MEDS ORDERED: PROC25SU31 RC (21:15)
[2017-07-28] MEDS ORDERED: FAMO-128 PO (23:06)
== END 2017-07-25 18:54 | disposition home or self-care (01) ==
LOC: ER 13:39
DX: K85.90 Acute pancreatitis without necrosis or infection, unspecified (principal); G89.29 Other chronic pain; K21.9 Gastro-esophageal reflux disease without esophagitis; F41.9 Anxiety disorder, unspecified; F32.9 Major depressive disorder, single episode, unspecified; E78.00 Pure hypercholesterolemia, unspecified; E11.9 Type 2 diabetes mellitus without complications; Z90.710 Acquired absence of both cervix and uterus; Z90.49 Acquired absence of other specified parts of digestive tract; Z87.891 Personal history of nicotine dependence; Z88.0 Allergy status to penicillin; Z88.6 Allergy status to analgesic agent; Z79.4 Long term (current) use of insulin
CPT/HCPCS: 36415; 80053; 82150; 83690; 85025; 85610; 96361; 96374; 96375; 96376; 99284; J1200; J2060; J2270; J2765; J3490; J7030

== ENCOUNTER 2017-07-26 19:13 | Emergency (ER) | payer MEDICAID ==
[~2017-07-26] VITALS: Ht 170.2 cm; Wt 107.6 kg
[2017-07-26 19:18] VITALS: BP_DIAS 95
[2017-07-26] MEDS ORDERED: diphenhydrAMINE 50 mg/ml inj IV ONE (20:10)
[2017-07-26] MEDS ORDERED: normal saline 1000ML IV soln IVB ONE (20:10)
[2017-07-26] MEDS ORDERED: metoclopramide 5 mg/ml inj IV ONE (20:10)
[2017-07-26] MEDS ORDERED: morphine 5 MG/ML injection IV ONE ×2 (20:10→21:40)
[2017-07-26] MEDS ORDERED: LIDOcaine Viscous 15ml cup MM ONE (20:30)
[2017-07-26] MEDS ORDERED: mag hydrox/Alum hydrox/simeth 30ml oral suspension PO ONE (20:30)
[2017-07-26] MEDS ORDERED: ondansetron/PF 4mg/2ml inj IV ONE (20:30)
[2017-07-26] MEDS ORDERED: famotidine/PF 10 mg/ml inj IV ONE (20:30)
[2017-07-26 20:41] LABS: BASOPHILS % (AUTO) 0.5 % (0-1); EOSINOPHILS # (AUTO) 0.2 X10'3 (0-0.9); EOSINOPHILS % (AUTO) 2.5 % (0-6); HEMATOCRIT 36.5 % (35.0-45.0); HEMOGLOBIN 12.7 g/dl (12.0-16.0); LYMPHOCYTES % (AUTO) 24.9 % (21-51); MEAN CORPUSCULAR HEMOGLOBIN 30.5 PG (27.0-31.0); MEAN CORPUSCULAR HGB CONC 34.8 % (33.0-36.5); MEAN CORPUSCULAR VOLUME 87.5 FL (78-98); MEAN PLATELET VOLUME 7.7 FL (7.4-10.4); MONOCYTES # (AUTO) 0.5 X10'3 (0-0.9); MONOCYTES % (AUTO) 6.7 % (2-12); NEUTROPHILS # (AUTO) 5.3 X10'3 (1.8-7.7); NEUTROPHILS % (AUTO) 65.4 % (42-75); PLATELET COUNT 279 X10'3 (140-440); RED BLOOD COUNT 4.17 X10'6 (4.20-5.60); WHITE BLOOD COUNT 8.1 X10'3 (4.5-11.0)
[2017-07-26 20:54] LABS: URINE AMPHETAMINE SCREEN NEGATIVE (Neg); URINE BARBITUATE SCREEN NEGATIVE (Neg); URINE BENZODIAZEPINES SCREEN NEGATIVE (Neg); URINE CANNABINOID SCREEN POSITIVE (Neg); URINE COCAINE SCREEN NEGATIVE (Neg); URINE METHADONE SCREEN NEGATIVE (Neg); URINE OPIATE SCREEN NEGATIVE (Neg); URINE PHENCYCLIDINE SCREEN NEGATIVE (Neg)
[2017-07-26 20:58] LABS: ALANINE AMINOTRANSFERASE 84 U/L (12-78); ALBUMIN 4.1 G/DL (3.4-5.0); ALBUMIN/GLOBULIN RATIO 1.1 (1.1-1.5); ALKALINE PHOSPHATASE 126 IU/L (46-116); ANION GAP 8 (8-16); ASPARTATE AMINO TRANSFERASE 38 U/L (10-37); BILIRUBIN,TOTAL 0.6 MG/DL (0.1-1.0); BLOOD UREA NITROGEN 9 MG/DL (7-18); BUN/CREATININE RATIO 12.9 (6.6-38.0); CALCIUM 9.5 MG/DL (8.5-10.1); CHLORIDE 103 MMOL/L (99-107); GLUCOSE 202 MG/DL (70-104); LIPASE 1201 U/L (73-393); POTASSIUM 3.6 MMOL/L (3.5-5.1); SODIUM 142 MMOL/L (135-145); TOTAL CARBON DIOXIDE 30.9 MMOL/L (24-32); TOTAL PROTEIN 7.8 G/DL (6.4-8.2); eGFR > 90 ML/MIN
[2017-07-26] MEDS ORDERED: morphine 2 MG/ML inj. syringe IV ONE ×2 (21:00→21:50)
[2017-07-26] MEDS ORDERED: PROC25SU31 RC (21:15)
[2017-07-26 22:00] VITALS: BP_SYST 165
[2017-07-28] MEDS ORDERED: FAMO-128 PO (23:06)
== END 2017-07-26 22:03 | disposition home or self-care (01) ==
LOC: ER 19:14
DX: E86.0 Dehydration (principal); E11.9 Type 2 diabetes mellitus without complications; E78.00 Pure hypercholesterolemia, unspecified; K21.9 Gastro-esophageal reflux disease without esophagitis; Z88.0 Allergy status to penicillin; Z88.6 Allergy status to analgesic agent; Z79.4 Long term (current) use of insulin
CPT/HCPCS: 36415; 80053; 80305; 83690; 85025; 96361; 96374; 96375; 96376; 99284; J1200; J2270; J2405; J2765; J3490; J7030

== ENCOUNTER 2017-08-01 21:36 | Emergency (ER) | payer MEDICAID ==
[~2017-08-01] VITALS: Ht 170.2 cm; Wt 108.0 kg
[~2017-08-01 21:36] MED LIST changes: +FAMO-128 PO; +PROC25SU31 RC
[2017-08-01 22:15] LABS: BASOPHILS % (AUTO) 0.5 % (0-1); EOSINOPHILS # (AUTO) 0.1 X10'3 (0-0.9); EOSINOPHILS % (AUTO) 1.7 % (0-6); HEMATOCRIT 38.3 % (35.0-45.0); HEMOGLOBIN 13.3 g/dl (12.0-16.0); LYMPHOCYTES # (AUTO) 2.2 X10'3 (1.1-4.8); LYMPHOCYTES % (AUTO) 26.8 % (21-51); MEAN CORPUSCULAR HEMOGLOBIN 30.3 PG (27.0-31.0); MEAN CORPUSCULAR HGB CONC 34.8 % (33.0-36.5); MEAN CORPUSCULAR VOLUME 86.8 FL (78-98); MEAN PLATELET VOLUME 7.7 FL (7.4-10.4); MONOCYTES # (AUTO) 0.5 X10'3 (0-0.9); MONOCYTES % (AUTO) 6.2 % (2-12); NEUTROPHILS # (AUTO) 5.3 X10'3 (1.8-7.7); NEUTROPHILS % (AUTO) 64.8 % (42-75); PLATELET COUNT 297 X10'3 (140-440); RED CELL DISTRIBUTION WIDTH 13.7 % (11.5-14.5); WHITE BLOOD COUNT 8.1 X10'3 (4.5-11.0)
[2017-08-01 22:25] LABS: INR 0.9 INR; PROTHROMBIN TIME 9.8 SECONDS (9.0-12.0)
[2017-08-01 22:31] LABS: ALANINE AMINOTRANSFERASE 87 U/L (12-78); ALBUMIN 4.2 G/DL (3.4-5.0); ALBUMIN/GLOBULIN RATIO 1.2 (1.1-1.5); ALKALINE PHOSPHATASE 151 IU/L (46-116); ANION GAP 9 (8-16); ASPARTATE AMINO TRANSFERASE 30 U/L (10-37); BILIRUBIN,TOTAL 0.5 MG/DL (0.1-1.0); BLOOD UREA NITROGEN 14 MG/DL (7-18); BUN/CREATININE RATIO 17.5 (6.6-38.0); CALCIUM 9.5 MG/DL (8.5-10.1); CHLORIDE 99 MMOL/L (99-107); GLUCOSE 304 MG/DL (70-104); POTASSIUM 3.7 MMOL/L (3.5-5.1); SODIUM 137 MMOL/L (135-145); TOTAL CARBON DIOXIDE 29.2 MMOL/L (24-32); TOTAL PROTEIN 7.8 G/DL (6.4-8.2); eGFR 85 ML/MIN
[2017-08-01 23:21] LABS: LIPASE 700 U/L (73-393)
[2017-08-02 00:13] LABS: CHOL/HDL RATIO 9.3 (0.00-4.99); CHOLESTEROL 223 MG/DL (0-200); HDL CHOLESTEROL 24 MG/DL (35-60); LDL CHOLESTEROL 130 MG/DL (50-100); TRIGLYCERIDES 499 MG/DL (20-135)
[2017-08-02] MEDS ORDERED: acetaminophen 325mg tablet PO ONE (00:25)
[2017-08-02 00:50] LABS: URINE HCG NEGATIVE (NEG)
[2017-08-02 01:00] LABS: CLARITY,URINE CLEAR (Clear); COLOR,URINE YELLOW (Yellow); GLUCOSE, URINE 500 mg/dl (Neg); KETONES,URINE NEGATIVE (Neg); LEUKOCYTE ESTERASE ,URINE NEGATIVE (Neg); NITRITES, URINE NEGATIVE (Neg); OCCULT BLOOD,URINE NEGATIVE (Neg); PROTEIN,URINE NEGATIVE (Neg); UROBILINOGEN,URINE 0.2 E.U/dL (0.2-1.0)
[2017-08-02 01:01] LABS: UA COLLECTION TYPE CLN CATCH MIDSTREAM
[2017-08-02] MEDS ORDERED: LIDOcaine Viscous 15ml cup MM PRN (01:25)
[2017-08-02] MEDS ORDERED: sucralfate 1gm/10ml UD suspension PO SCH (01:25)
[2017-08-02] MEDS ORDERED: mag hydrox/Alum hydrox/simeth 30ml oral suspension PO ONE (01:25)
[2017-08-02] MEDS ORDERED: FAMO20TA44 PO (01:26)
[2017-08-02] MEDS ORDERED: OMEP20CA10 PO (01:26)
[2017-08-02] MEDS ORDERED: SUCR1ORA2 PO (01:26)
[2017-08-02] MEDS ORDERED: ONDA4TAB9 SL (01:26)
[2017-08-02 02:00] VITALS: BP 137/98
== END 2017-08-02 02:06 | disposition home or self-care (01) ==
LOC: ER 21:36
DX: K86.1 Other chronic pancreatitis (principal); E78.5 Hyperlipidemia, unspecified; E78.00 Pure hypercholesterolemia, unspecified; K21.9 Gastro-esophageal reflux disease without esophagitis; G89.29 Other chronic pain; E11.42 Type 2 diabetes mellitus with diabetic polyneuropathy; Z90.49 Acquired absence of other specified parts of digestive tract; Z90.710 Acquired absence of both cervix and uterus; Z88.8 Allergy status to other drugs, medicaments and biological substances; Z88.0 Allergy status to penicillin; Z79.4 Long term (current) use of insulin; Z79.899 Other long term (current) drug therapy
CPT/HCPCS: 36415; 80053; 80061; 81003; 81025; 83690; 85025; 85610; 99284

== ENCOUNTER 2017-09-25 15:22 | Emergency (ER) | payer MEDICAID ==
[~2017-09-25] VITALS: Ht 170.2 cm; Wt 95.8 kg
[~2017-09-25 15:22] MED LIST changes: +FAMO20TA44 PO; +GOLYS PO; +OMEP20CA10 PO; -OXYC-658 PO; -PROC25SU31 RC; +SUCR1ORA2 PO
[2017-09-25 18:01] LABS: BASOPHILS % (AUTO) 0.5 % (0-1); EOSINOPHILS # (AUTO) 0.2 X10'3 (0-0.9); EOSINOPHILS % (AUTO) 2.2 % (0-6); HEMATOCRIT 36.6 % (35.0-45.0); HEMOGLOBIN 12.6 g/dl (12.0-16.0); LYMPHOCYTES # (AUTO) 2.5 X10'3 (1.1-4.8); LYMPHOCYTES % (AUTO) 28.2 % (21-51); MEAN CORPUSCULAR HEMOGLOBIN 30.5 PG (27.0-31.0); MEAN CORPUSCULAR HGB CONC 34.5 % (33.0-36.5); MEAN CORPUSCULAR VOLUME 88.2 FL (78-98); MEAN PLATELET VOLUME 7.6 FL (7.4-10.4); MONOCYTES # (AUTO) 0.6 X10'3 (0-0.9); MONOCYTES % (AUTO) 6.8 % (2-12); NEUTROPHILS # (AUTO) 5.5 X10'3 (1.8-7.7); NEUTROPHILS % (AUTO) 62.3 % (42-75); PLATELET COUNT 296 X10'3 (140-440); RED BLOOD COUNT 4.15 X10'6 (4.20-5.60); RED CELL DISTRIBUTION WIDTH 13.1 % (11.5-14.5); WHITE BLOOD COUNT 8.9 X10'3 (4.5-11.0)
[2017-09-25] MEDS ORDERED: ibuprofen tablet 400 MG TABLET PO ONE (18:05)
[2017-09-25 18:16] LABS: ALANINE AMINOTRANSFERASE 88 U/L (12-78); ALBUMIN 3.7 G/DL (3.4-5.0); ALKALINE PHOSPHATASE 170 IU/L (46-116); ANION GAP 7 (8-16); ASPARTATE AMINO TRANSFERASE 42 U/L (10-37); BILIRUBIN,TOTAL 0.4 MG/DL (0.1-1.0); BLOOD UREA NITROGEN 10 MG/DL (7-18); BUN/CREATININE RATIO 14.5 (6.6-38.0); CALCIUM 9.4 MG/DL (8.5-10.1); CHLORIDE 103 MMOL/L (99-107); CREATININE 0.69 MG/DL (0.40-0.90); GLUCOSE 215 MG/DL (70-104); SODIUM 140 MMOL/L (135-145); TOTAL CARBON DIOXIDE 30.5 MMOL/L (24-32); TOTAL PROTEIN 7.5 G/DL (6.4-8.2); eGFR > 90 ML/MIN
[2017-09-25 19:12] VITALS: BP 136/83
== END 2017-09-25 19:16 | disposition home or self-care (01) ==
LOC: ER 15:22
DX: R51 Headache (principal); B34.9 Viral infection, unspecified; E11.42 Type 2 diabetes mellitus with diabetic polyneuropathy; E78.00 Pure hypercholesterolemia, unspecified; K21.9 Gastro-esophageal reflux disease without esophagitis; G89.29 Other chronic pain; Z90.710 Acquired absence of both cervix and uterus; Z90.49 Acquired absence of other specified parts of digestive tract; Z88.0 Allergy status to penicillin; Z79.4 Long term (current) use of insulin; Z79.899 Other long term (current) drug therapy
CPT/HCPCS: 36415; 80053; 85025; 87502; 87503; 99284

== ENCOUNTER 2017-10-24 14:39 | Emergency (ER) | payer MEDICAID ==
[~2017-10-24] VITALS: Ht 170.2 cm; Wt 95.0 kg
[2017-10-24] MEDS ORDERED: aspirin 81mg tab.chew PO ONE (14:50)
[2017-10-24 15:07] LABS: BASOPHILS % (AUTO) 0.2 % (0-1); EOSINOPHILS # (AUTO) 0.3 X10'3 (0-0.9); EOSINOPHILS % (AUTO) 3.9 % (0-6); HEMATOCRIT 35.6 % (35.0-45.0); LYMPHOCYTES # (AUTO) 1.8 X10'3 (1.1-4.8); LYMPHOCYTES % (AUTO) 23.3 % (21-51); MEAN CORPUSCULAR VOLUME 86.9 FL (78-98); MEAN PLATELET VOLUME 7.4 FL (7.4-10.4); MONOCYTES # (AUTO) 0.4 X10'3 (0-0.9); MONOCYTES % (AUTO) 5.5 % (2-12); NEUTROPHILS # (AUTO) 5.1 X10'3 (1.8-7.7); NEUTROPHILS % (AUTO) 67.1 % (42-75); PLATELET COUNT 294 X10'3 (140-440); RED CELL DISTRIBUTION WIDTH 12.6 % (11.5-14.5); WHITE BLOOD COUNT 7.6 X10'3 (4.5-11.0)
[2017-10-24 15:20] LABS: HEMOGLOBIN 12.3 g/dl (12.0-16.0); MEAN CORPUSCULAR HEMOGLOBIN 30.6 PG (27.0-31.0); MEAN CORPUSCULAR HGB CONC 35.1 % (33.0-36.5)
[2017-10-24] MEDS ORDERED: ondansetron/PF 4mg/2ml inj IV ONE (15:25)
[2017-10-24 15:28] LABS: ALANINE AMINOTRANSFERASE 80 U/L (12-78); ALBUMIN 3.8 G/DL (3.4-5.0); ALKALINE PHOSPHATASE 201 IU/L (46-116); ANION GAP 11 (8-16); BILIRUBIN,TOTAL 0.3 MG/DL (0.1-1.0); BLOOD UREA NITROGEN 13 MG/DL (7-18); CALCIUM 8.8 MG/DL (8.5-10.1); CHLORIDE 98 MMOL/L (99-107); CREATININE 1.08 MG/DL (0.40-0.90); GLUCOSE 440 MG/DL (70-104); POTASSIUM 4.1 MMOL/L (3.5-5.1); SODIUM 136 MMOL/L (135-145); TOTAL CARBON DIOXIDE 27.2 MMOL/L (24-32); TOTAL PROTEIN 7.5 G/DL (6.4-8.2); eGFR 60 ML/MIN
[2017-10-24] MEDS ORDERED: ondansetron 4mg rapidly disintigrating tab PO ONE (15:30)
[2017-10-24 15:41] LABS: ASPARTATE AMINO TRANSFERASE 25 U/L (10-37)
[2017-10-24 15:48] LABS: D-DIMER 0.21 MG/L FEU (0-0.50)
[2017-10-24 15:49] LABS: INR 0.9 INR; PARTIAL THROMBOPLASTIN TIME 25 SECONDS (22-32); PROTHROMBIN TIME 9.6 SECONDS (9.0-12.0)
[2017-10-24 16:11] VITALS: BP 135/83
== END 2017-10-24 16:12 | disposition home or self-care (01) ==
LOC: ER 14:39
DX: R09.1 Pleurisy (principal); E11.42 Type 2 diabetes mellitus with diabetic polyneuropathy; E78.00 Pure hypercholesterolemia, unspecified; K21.9 Gastro-esophageal reflux disease without esophagitis; G89.29 Other chronic pain; Z90.710 Acquired absence of both cervix and uterus; Z90.49 Acquired absence of other specified parts of digestive tract; Z87.891 Personal history of nicotine dependence; Z88.0 Allergy status to penicillin; Z88.8 Allergy status to other drugs, medicaments and biological substances; Z79.4 Long term (current) use of insulin
CPT/HCPCS: 36415; 71045; 80053; 83880; 84484; 85025; 85379; 85610; 85730; 93005; 99285

== ENCOUNTER 2018-01-02 22:36 | Emergency (ER) | payer MEDICAID ==
[~2018-01-02] VITALS: Ht 170.2 cm; Wt 104.5 kg
[2018-01-02 22:56] LABS: CLARITY,URINE SLIGHTLY CLOUDY (Clear); COLOR,URINE YELLOW (Yellow); GLUCOSE, URINE 500 mg/dl (Neg); KETONES,URINE NEGATIVE (Neg); LEUKOCYTE ESTERASE ,URINE NEGATIVE (Neg); NITRITES, URINE NEGATIVE (Neg); OCCULT BLOOD,URINE SMALL (Neg); PROTEIN,URINE NEGATIVE (Neg); UROBILINOGEN,URINE 0.2 E.U/dL (0.2-1.0)
[2018-01-02 22:57] LABS: URINE HCG NEGATIVE (NEG)
[2018-01-02 22:58] LABS: UA COLLECTION TYPE CLN CATCH MIDSTREAM
[2018-01-02] MEDS ORDERED: ondansetron 4mg rapidly disintigrating tab PO ONE (23:00)
[2018-01-02] MEDS ORDERED: HYDROcodone/acetaminophen 5mg/325mg tablet PO ONE (23:00)
[2018-01-02 23:04] LABS: AMORPHOUS PHOSPHATES 3+; BACTERIA,URINE NONE SEEN /HPF (Neg); MUCUS STRANDS NONE SEEN /LPF (Neg); SQUAMOUS EPITHELIAL CELL,UR FEW /LPF (FEW); WBC,URINE 0-4 /HPF (0-4)
[2018-01-02 23:54] LABS: BASOPHILS % (AUTO) 0.3 % (0-1); EOSINOPHILS # (AUTO) 0.2 X10'3 (0-0.9); EOSINOPHILS % (AUTO) 2.3 % (0-6); HEMATOCRIT 35.8 % (35.0-45.0); HEMOGLOBIN 12.5 g/dl (12.0-16.0); LYMPHOCYTES # (AUTO) 2.3 X10'3 (1.1-4.8); LYMPHOCYTES % (AUTO) 29.5 % (21-51); MEAN CORPUSCULAR HEMOGLOBIN 30.5 PG (27.0-31.0); MEAN CORPUSCULAR HGB CONC 34.8 % (33.0-36.5); MEAN CORPUSCULAR VOLUME 87.6 FL (78-98); MEAN PLATELET VOLUME 7.7 FL (7.4-10.4); MONOCYTES # (AUTO) 0.5 X10'3 (0-0.9); MONOCYTES % (AUTO) 6.8 % (2-12); NEUTROPHILS # (AUTO) 4.8 X10'3 (1.8-7.7); NEUTROPHILS % (AUTO) 61.1 % (42-75); PLATELET COUNT 292 X10'3 (140-440); RED BLOOD COUNT 4.09 X10'6 (4.20-5.60); RED CELL DISTRIBUTION WIDTH 13.2 % (11.5-14.5); WHITE BLOOD COUNT 7.9 X10'3 (4.5-11.0)
[2018-01-03] LABS: INR 0.9 INR; PROTHROMBIN TIME 9.6 SECONDS (9.0-12.0)
[2018-01-03 00:05] LABS: ALANINE AMINOTRANSFERASE 76 U/L (12-78); ALBUMIN 3.8 G/DL (3.4-5.0); ALKALINE PHOSPHATASE 172 IU/L (46-116); ANION GAP 8 (8-16); ASPARTATE AMINO TRANSFERASE 29 U/L (10-37); BILIRUBIN,TOTAL 0.4 MG/DL (0.1-1.0); BLOOD UREA NITROGEN 16 MG/DL (7-18); BUN/CREATININE RATIO 17.6 (6.6-38.0); CALCIUM 9.2 MG/DL (8.5-10.1); CHLORIDE 99 MMOL/L (99-107); CREATININE 0.91 MG/DL (0.40-0.90); GLUCOSE 284 MG/DL (70-104); LIPASE 295 U/L (73-393); POTASSIUM 3.7 MMOL/L (3.5-5.1); SODIUM 138 MMOL/L (135-145); TOTAL CARBON DIOXIDE 30.6 MMOL/L (24-32); TOTAL PROTEIN 7.6 G/DL (6.4-8.2); eGFR 74 ML/MIN
[2018-01-03 01:46] VITALS: BP 126/71
== END 2018-01-03 01:20 | disposition home or self-care (01) ==
LOC: ER 22:36
DX: R10.12 Left upper quadrant pain (principal); R11.2 Nausea with vomiting, unspecified; E11.42 Type 2 diabetes mellitus with diabetic polyneuropathy; E78.00 Pure hypercholesterolemia, unspecified; K21.9 Gastro-esophageal reflux disease without esophagitis; G89.29 Other chronic pain; Z90.710 Acquired absence of both cervix and uterus; Z90.49 Acquired absence of other specified parts of digestive tract; Z98.890 Other specified postprocedural states; Z88.0 Allergy status to penicillin; Z88.8 Allergy status to other drugs, medicaments and biological substances; Z79.4 Long term (current) use of insulin; Z79.899 Other long term (current) drug therapy
CPT/HCPCS: 36415; 80053; 81001; 81025; 83605; 83690; 85025; 85610; 87040; 99284

== ENCOUNTER 2018-01-11 21:11 | Emergency (ER) | payer MEDICAID ==
[~2018-01-11] VITALS: Ht 172.7 cm; Wt 103.0 kg
[2018-01-11 21:22] VITALS: BP 139/80
[2018-01-11 22:13] LABS: URINE HCG NEGATIVE (NEG)
[2018-01-11 22:34] LABS: CLARITY,URINE CLEAR (Clear); COLOR,URINE YELLOW (Yellow); GLUCOSE, URINE NEGATIVE (Neg); KETONES,URINE NEGATIVE (Neg); LEUKOCYTE ESTERASE ,URINE NEGATIVE (Neg); NITRITES, URINE NEGATIVE (Neg); OCCULT BLOOD,URINE MODERATE (Neg); PROTEIN,URINE NEGATIVE (Neg); UA COLLECTION TYPE NON-SPECIFIED; UROBILINOGEN,URINE 0.2 E.U/dL (0.2-1.0)
[2018-01-11 22:42] LABS: BACTERIA,URINE NONE SEEN /HPF (Neg); SQUAMOUS EPITHELIAL CELL,UR NONE SEEN /LPF (FEW); WBC,URINE NONE SEEN /HPF (0-4)
== END 2018-01-11 22:57 | disposition home or self-care (01) ==
LOC: ER 21:12
DX: R31.9 Hematuria, unspecified (principal); R10.32 Left lower quadrant pain; E78.00 Pure hypercholesterolemia, unspecified; K21.9 Gastro-esophageal reflux disease without esophagitis; E11.42 Type 2 diabetes mellitus with diabetic polyneuropathy; Z90.710 Acquired absence of both cervix and uterus; Z98.890 Other specified postprocedural states; Z88.0 Allergy status to penicillin; Z88.8 Allergy status to other drugs, medicaments and biological substances; Z79.899 Other long term (current) drug therapy; Z79.4 Long term (current) use of insulin
CPT/HCPCS: 81001; 81025; 99284

== ENCOUNTER 2018-05-22 19:51 | Emergency (ER) | payer MEDICAID, OTHER ==
[~2018-05-22] VITALS: Ht 170.2 cm; Wt 104.0 kg
[2018-05-22 20:22] LABS: BASOPHILS % (AUTO) 0.4 % (0-1); EOSINOPHILS # (AUTO) 0.2 X10'3 (0-0.9); HEMATOCRIT 37.7 % (35.0-45.0); HEMOGLOBIN 12.9 g/dl (12.0-16.0); LYMPHOCYTES # (AUTO) 2.8 X10'3 (1.1-4.8); LYMPHOCYTES % (AUTO) 28.3 % (21-51); MEAN CORPUSCULAR HEMOGLOBIN 30.4 PG (27.0-31.0); MEAN CORPUSCULAR HGB CONC 34.2 % (33.0-36.5); MEAN CORPUSCULAR VOLUME 88.8 FL (78-98); MEAN PLATELET VOLUME 7.1 FL (7.4-10.4); MONOCYTES # (AUTO) 0.7 X10'3 (0-0.9); MONOCYTES % (AUTO) 6.7 % (2-12); NEUTROPHILS # (AUTO) 6.1 X10'3 (1.8-7.7); NEUTROPHILS % (AUTO) 62.6 % (42-75); PLATELET COUNT 350 X10'3 (140-440); RED BLOOD COUNT 4.24 X10'6 (4.20-5.60); RED CELL DISTRIBUTION WIDTH 13.7 % (11.5-14.5); WHITE BLOOD COUNT 9.8 X10'3 (4.5-11.0)
[2018-05-22 20:33] LABS: PARTIAL THROMBOPLASTIN TIME 28 SECONDS (22-32); PROTHROMBIN TIME 9.7 SECONDS (9.0-12.0)
[2018-05-22 20:36] LABS: ALANINE AMINOTRANSFERASE 112 U/L (12-78); ALBUMIN 4.1 G/DL (3.4-5.0); ALBUMIN/GLOBULIN RATIO 1.1 (1.1-1.5); ALKALINE PHOSPHATASE 170 IU/L (46-116); ANION GAP 9 (8-16); ASPARTATE AMINO TRANSFERASE 26 U/L (10-37); BILIRUBIN,TOTAL 0.3 MG/DL (0.1-1.0); BLOOD UREA NITROGEN 17 MG/DL (7-18); BUN/CREATININE RATIO 21.5 (6.6-38.0); CALCIUM 9.4 MG/DL (8.5-10.1); CHLORIDE 98 MMOL/L (99-107); CREATININE 0.79 MG/DL (0.40-0.90); GLUCOSE 241 MG/DL (70-104); SODIUM 136 MMOL/L (135-145); TOTAL CARBON DIOXIDE 29.1 MMOL/L (24-32); eGFR 86 ML/MIN
[2018-05-22 21:30] LABS: LIPASE 399 U/L (73-393)
[2018-05-22] MEDS ORDERED: carVEDilol 3.125mg tablet PO STA (22:28)
[2018-05-22 22:29] LABS: C-REACTIVE PROTEIN 0.66 MG/DL (0.0-0.5)
[2018-05-22] MEDS ORDERED: insulin regular, human 10 units/0.1 ml syringe SQ ONE (22:30)
[2018-05-22] MEDS ORDERED: metoprolol tartrate 1mg/ml inj IV ONE (22:30)
[2018-05-22] MEDS ORDERED: nitroGLYCERIN 0.4mg/hour patch TD ONE (22:30)
[2018-05-23] MEDS ORDERED: HYDROcodone/acetaminophen 5mg/325mg tablet PO ONE (00:15)
[2018-05-23] MEDS ORDERED: LORazepam 2 mg/ml vial IV ONE (01:00)
[2018-05-23] MEDS ORDERED: iohexol 350MG/ML 100ml bottle IV ONE (01:02)
[2018-05-23] MEDS ORDERED: HYDR-4383 PO (02:23)
[2018-05-23 02:47] VITALS: BP 132/80
== END 2018-05-23 02:52 | disposition home or self-care (01) ==
LOC: ER 19:52
DX: R09.1 Pleurisy (principal); R00.0 Tachycardia, unspecified; I49.9 Cardiac arrhythmia, unspecified; E78.00 Pure hypercholesterolemia, unspecified; K21.9 Gastro-esophageal reflux disease without esophagitis; E11.42 Type 2 diabetes mellitus with diabetic polyneuropathy; G89.29 Other chronic pain; Z90.49 Acquired absence of other specified parts of digestive tract; Z90.710 Acquired absence of both cervix and uterus; Z98.890 Other specified postprocedural states; Z88.0 Allergy status to penicillin; Z88.6 Allergy status to analgesic agent; Z79.2 Long term (current) use of antibiotics; Z79.899 Other long term (current) drug therapy
CPT/HCPCS: 36415; 71045; 71275; 80053; 83690; 84484; 85025; 85610; 85651; 85730; 86140; 93005; 96372; 96374; 96375; 99284; J1815; J2060; Q9967; J3490

== ENCOUNTER 2018-05-24 12:05 | Emergency (ER) | payer OTHER ==
[~2018-05-24] VITALS: Ht 170.2 cm; Wt 10.3 kg
[~2018-05-24 12:05] MED LIST changes: +HYDR-4383 PO
[2018-05-24] MEDS ORDERED: HYDROcodone/acetaminophen 5mg/325mg tablet PO ONE (12:40)
[2018-05-24] MEDS ORDERED: LORazepam 1 MG tablet PO ONE (12:40)
[2018-05-24 12:43] LABS: BASOPHILS # (AUTO) 0.1 X10'3 (0-0.2); EOSINOPHILS # (AUTO) 0.2 X10'3 (0-0.9); EOSINOPHILS % (AUTO) 1.6 % (0-6); HEMATOCRIT 38.6 % (35.0-45.0); LYMPHOCYTES # (AUTO) 2.3 X10'3 (1.1-4.8); LYMPHOCYTES % (AUTO) 19.9 % (21-51); MEAN CORPUSCULAR HEMOGLOBIN 30.1 PG (27.0-31.0); MEAN CORPUSCULAR HGB CONC 33.6 % (33.0-36.5); MEAN CORPUSCULAR VOLUME 89.5 FL (78-98); MEAN PLATELET VOLUME 7.3 FL (7.4-10.4); MONOCYTES # (AUTO) 0.7 X10'3 (0-0.9); NEUTROPHILS # (AUTO) 8.3 X10'3 (1.8-7.7); NEUTROPHILS % (AUTO) 71.5 % (42-75); PLATELET COUNT 337 X10'3 (140-440); RED BLOOD COUNT 4.32 X10'6 (4.20-5.60); RED CELL DISTRIBUTION WIDTH 13.5 % (11.5-14.5); WHITE BLOOD COUNT 11.6 X10'3 (4.5-11.0)
[2018-05-24 12:51] LABS: ALANINE AMINOTRANSFERASE 107 U/L (12-78); ALKALINE PHOSPHATASE 146 IU/L (46-116); ANION GAP 9 (8-16); ASPARTATE AMINO TRANSFERASE 43 U/L (10-37); BILIRUBIN,TOTAL 0.5 MG/DL (0.1-1.0); BLOOD UREA NITROGEN 16 MG/DL (7-18); BUN/CREATININE RATIO 18.2 (6.6-38.0); CALCIUM 9.3 MG/DL (8.5-10.1); CHLORIDE 99 MMOL/L (99-107); CREATININE 0.88 MG/DL (0.40-0.90); GLUCOSE 178 MG/DL (70-104); PARTIAL THROMBOPLASTIN TIME 28 SECONDS (22-32); POTASSIUM 3.9 MMOL/L (3.5-5.1); PROTHROMBIN TIME 10.3 SECONDS (9.0-12.0); SODIUM 138 MMOL/L (135-145); TOTAL CARBON DIOXIDE 29.7 MMOL/L (24-32); TOTAL PROTEIN 8.2 G/DL (6.4-8.2); eGFR 76 ML/MIN
[2018-05-24 13:17] VITALS: BP 132/57
== END 2018-05-24 13:20 | disposition home or self-care (01) ==
LOC: ER 12:06
DX: R07.9 Chest pain, unspecified (principal); R00.0 Tachycardia, unspecified; K21.9 Gastro-esophageal reflux disease without esophagitis; E78.00 Pure hypercholesterolemia, unspecified; E11.42 Type 2 diabetes mellitus with diabetic polyneuropathy; Z88.0 Allergy status to penicillin; Z88.6 Allergy status to analgesic agent; Z79.4 Long term (current) use of insulin; Z87.440 Personal history of urinary (tract) infections; Z87.19 Personal history of other diseases of the digestive system; Z90.49 Acquired absence of other specified parts of digestive tract; Z90.710 Acquired absence of both cervix and uterus
CPT/HCPCS: 36415; 71045; 80053; 84484; 85025; 85610; 85730; 93005; 99284

== ENCOUNTER 2018-06-24 21:04 | Emergency (ER) | payer MEDICAID, OTHER ==
[~2018-06-24] VITALS: Ht 170.2 cm; Wt 106.8 kg
[2018-06-24] MEDS ORDERED: ondansetron/PF 4mg/2ml inj IV ONE (22:00)
[2018-06-24] MEDS ORDERED: morphine 4 MG/ML inj SYRINge IV ONE (22:00)
[2018-06-24] MEDS ORDERED: normal saline 1000ML IV soln IVB ONE (22:00)
[2018-06-24 22:17] LABS: URINE HCG NEGATIVE (NEG)
[2018-06-24 22:20] LABS: CLARITY,URINE CLEAR (Clear); COLOR,URINE YELLOW (Yellow); GLUCOSE, URINE NEGATIVE (Neg); KETONES,URINE NEGATIVE (Neg); LEUKOCYTE ESTERASE ,URINE NEGATIVE (Neg); NITRITES, URINE NEGATIVE (Neg); OCCULT BLOOD,URINE TRACE-INTACT (Neg); PH,URINE 7.5 (4.8-8.0); PROTEIN,URINE NEGATIVE (Neg); UROBILINOGEN,URINE 0.2 E.U/dL (0.2-1.0)
--- NOTE | 2018-06-24 22:22 | NUR ---
pt took 600mg ibuprofen approx 8 hours ago for head pain
[2018-06-24 22:24] LABS: UA COLLECTION TYPE CLN CATCH MIDSTREAM
[2018-06-24 22:26] LABS: BACTERIA,URINE FEW /HPF (Neg); RBC,URINE 0-2 /HPF (0-2); SQUAMOUS EPITHELIAL CELL,UR FEW /LPF (FEW); WBC,URINE 0-4 /HPF (0-4)
[2018-06-24 22:51] LABS: BASOPHILS % (AUTO) 0.3 % (0-1); EOSINOPHILS # (AUTO) 0.2 X10'3 (0-0.9); EOSINOPHILS % (AUTO) 1.5 % (0-6); HEMATOCRIT 37.7 % (35.0-45.0); HEMOGLOBIN 12.7 g/dl (12.0-16.0); LYMPHOCYTES # (AUTO) 2.6 X10'3 (1.1-4.8); LYMPHOCYTES % (AUTO) 23.1 % (21-51); MEAN CORPUSCULAR HEMOGLOBIN 29.5 PG (27.0-31.0); MEAN CORPUSCULAR HGB CONC 33.7 % (33.0-36.5); MEAN CORPUSCULAR VOLUME 87.6 FL (78-98); MEAN PLATELET VOLUME 7.3 FL (7.4-10.4); MONOCYTES # (AUTO) 0.7 X10'3 (0-0.9); MONOCYTES % (AUTO) 5.9 % (2-12); NEUTROPHILS # (AUTO) 7.7 X10'3 (1.8-7.7); NEUTROPHILS % (AUTO) 69.2 % (42-75); PLATELET COUNT 345 X10'3 (140-440); RED CELL DISTRIBUTION WIDTH 12.5 % (11.5-14.5); WHITE BLOOD COUNT 11.2 X10'3 (4.5-11.0)
[2018-06-24 23:03] LABS: ALANINE AMINOTRANSFERASE 92 U/L (12-78); ALBUMIN 4.1 G/DL (3.4-5.0); ALKALINE PHOSPHATASE 151 IU/L (46-116); ANION GAP 10 (8-16); ASPARTATE AMINO TRANSFERASE 34 U/L (10-37); BILIRUBIN,TOTAL 0.3 MG/DL (0.1-1.0); BLOOD UREA NITROGEN 17 MG/DL (7-18); BUN/CREATININE RATIO 18.9 (6.6-38.0); CALCIUM 9.3 MG/DL (8.5-10.1); CHLORIDE 100 MMOL/L (99-107); GLUCOSE 163 MG/DL (70-104); POTASSIUM 3.5 MMOL/L (3.5-5.1); SODIUM 138 MMOL/L (135-145); TOTAL CARBON DIOXIDE 27.8 MMOL/L (24-32); TOTAL PROTEIN 8.2 G/DL (6.4-8.2); eGFR 74 ML/MIN
[2018-06-24] MEDS ORDERED: diphenhydrAMINE 50 mg/ml inj IV ONE (23:10)
[2018-06-25 01:17] LABS: LIPASE 250 U/L (73-393)
[2018-06-25] MEDS ORDERED: MECL-111 PO (02:10)
[2018-06-25] MEDS ORDERED: TADA20TA PO (02:10)
[2018-06-25] MEDS ORDERED: PROC-8 PO (02:10)
[2018-06-25] MEDS ORDERED: HYDROcodone/acetaminophen 10/325mg tab PO ONE (02:15)
[2018-06-25] MEDS ORDERED: ondansetron 4mg rapidly disintigrating tab PO ONE (02:15)
[2018-06-25 02:56] VITALS: BP 118/74
== END 2018-06-25 02:59 | disposition home or self-care (01) ==
LOC: ER 21:05
DX: N13.2 Hydronephrosis with renal and ureteral calculous obstruction (principal); R42 Dizziness and giddiness; R10.10 Upper abdominal pain, unspecified; R10.11 Right upper quadrant pain; E11.42 Type 2 diabetes mellitus with diabetic polyneuropathy; E78.00 Pure hypercholesterolemia, unspecified; K21.9 Gastro-esophageal reflux disease without esophagitis; G89.29 Other chronic pain; Z90.49 Acquired absence of other specified parts of digestive tract; Z90.710 Acquired absence of both cervix and uterus; Z98.890 Other specified postprocedural states; Z88.0 Allergy status to penicillin; Z88.6 Allergy status to analgesic agent; Z79.4 Long term (current) use of insulin; Z79.899 Other long term (current) drug therapy
CPT/HCPCS: 36415; 70450; 74176; 80053; 81001; 81025; 83690; 85025; 93005; 96361; 96374; 96375; 99284; J1200; J2270; J2405; J7030

== ENCOUNTER 2018-07-18 07:47 | Emergency (ER) | payer MEDICAID ==
[~2018-07-18] VITALS: Ht 170.2 cm; Wt 103.2 kg
[~2018-07-18 07:47] MED LIST changes: +GABA600T13 PO; -GABA600T2 PO; +MECL-111 PO; +TADA20TA PO
[2018-07-18 08:26] LABS: URINE HCG NEGATIVE (NEG)
[2018-07-18 08:28] LABS: CLARITY,URINE CLEAR (Clear); COLOR,URINE YELLOW (Yellow); GLUCOSE, URINE NEGATIVE (Neg); KETONES,URINE NEGATIVE (Neg); LEUKOCYTE ESTERASE ,URINE NEGATIVE (Neg); NITRITES, URINE NEGATIVE (Neg); OCCULT BLOOD,URINE NEGATIVE (Neg); PROTEIN,URINE NEGATIVE (Neg); UROBILINOGEN,URINE 0.2 E.U/dL (0.2-1.0)
[2018-07-18 08:31] LABS: UA COLLECTION TYPE CLN CATCH MIDSTREAM
[2018-07-18 09:13] LABS: BASOPHILS % (AUTO) 0.5 % (0-1); EOSINOPHILS # (AUTO) 0.1 X10'3 (0-0.9); EOSINOPHILS % (AUTO) 1.3 % (0-6); HEMATOCRIT 42.2 % (35.0-45.0); HEMOGLOBIN 14.2 g/dl (12.0-16.0); LYMPHOCYTES # (AUTO) 2.2 X10'3 (1.1-4.8); LYMPHOCYTES % (AUTO) 27.5 % (21-51); MEAN CORPUSCULAR HEMOGLOBIN 29.8 PG (27.0-31.0); MEAN CORPUSCULAR HGB CONC 33.6 % (33.0-36.5); MEAN CORPUSCULAR VOLUME 88.9 FL (78-98); MEAN PLATELET VOLUME 7.3 FL (7.4-10.4); MONOCYTES # (AUTO) 0.4 X10'3 (0-0.9); MONOCYTES % (AUTO) 5.3 % (2-12); NEUTROPHILS # (AUTO) 5.2 X10'3 (1.8-7.7); NEUTROPHILS % (AUTO) 65.4 % (42-75); PLATELET COUNT 329 X10'3 (140-440); RED BLOOD COUNT 4.75 X10'6 (4.20-5.60); RED CELL DISTRIBUTION WIDTH 13.4 % (11.5-14.5)
[2018-07-18 09:36] LABS: ALANINE AMINOTRANSFERASE 90 U/L (12-78); ALBUMIN 4.7 G/DL (3.4-5.0); ALBUMIN/GLOBULIN RATIO 1.1 (1.1-1.5); ALKALINE PHOSPHATASE 147 IU/L (46-116); ANION GAP 11 (8-16); ASPARTATE AMINO TRANSFERASE 31 U/L (10-37); BILIRUBIN,TOTAL 0.5 MG/DL (0.1-1.0); BLOOD UREA NITROGEN 20 MG/DL (7-18); BUN/CREATININE RATIO 22.7 (6.6-38.0); CALCIUM 9.7 MG/DL (8.5-10.1); CHLORIDE 99 MMOL/L (99-107); CREATININE 0.88 MG/DL (0.40-0.90); GLUCOSE 227 MG/DL (70-104); POTASSIUM 4.8 MMOL/L (3.5-5.1); SODIUM 136 MMOL/L (135-145); TOTAL CARBON DIOXIDE 26.3 MMOL/L (24-32); TOTAL PROTEIN 9.1 G/DL (6.4-8.2); eGFR 76 ML/MIN
[2018-07-18 09:59] VITALS: BP 151/100
== END 2018-07-18 10:03 | disposition home or self-care (01) ==
LOC: ER 07:47
DX: N20.0 Calculus of kidney (principal); E11.42 Type 2 diabetes mellitus with diabetic polyneuropathy; E78.00 Pure hypercholesterolemia, unspecified; K21.9 Gastro-esophageal reflux disease without esophagitis; G89.29 Other chronic pain; Z90.49 Acquired absence of other specified parts of digestive tract; Z90.710 Acquired absence of both cervix and uterus; Z98.890 Other specified postprocedural states; Z88.0 Allergy status to penicillin; Z88.5 Allergy status to narcotic agent; Z88.8 Allergy status to other drugs, medicaments and biological substances; Z79.4 Long term (current) use of insulin; Z79.899 Other long term (current) drug therapy
CPT/HCPCS: 36415; 76775; 80053; 81003; 81025; 85025; 99284

== ENCOUNTER 2018-09-30 18:08 | Emergency (ER) | payer MEDICAID ==
[~2018-09-30] VITALS: Ht 170.2 cm; Wt 104.0 kg
[2018-09-30 19:14] LABS: BASOPHILS # (AUTO) 0.1 X10'3 (0-0.2); BASOPHILS % (AUTO) 0.7 % (0-1); EOSINOPHILS # (AUTO) 0.1 X10'3 (0-0.9); EOSINOPHILS % (AUTO) 1.7 % (0-6); HEMATOCRIT 39.4 % (35.0-45.0); HEMOGLOBIN 13.4 g/dl (12.0-16.0); LYMPHOCYTES % (AUTO) 37.6 % (21-51); MEAN CORPUSCULAR HEMOGLOBIN 29.6 PG (27.0-31.0); MEAN CORPUSCULAR HGB CONC 33.9 g/dL (33.0-36.5); MEAN CORPUSCULAR VOLUME 87.2 FL (78-98); MEAN PLATELET VOLUME 8.1 FL (7.4-10.4); MONOCYTES # (AUTO) 0.5 X10'3 (0-0.9); MONOCYTES % (AUTO) 6.7 % (2-12); NEUTROPHILS # (AUTO) 4.2 X10'3 (1.8-7.7); NEUTROPHILS % (AUTO) 53.3 % (42-75); PLATELET COUNT 337 X10'3 (140-440); RED BLOOD COUNT 4.51 X10'6 (4.20-5.60); RED CELL DISTRIBUTION WIDTH 13.7 % (11.5-14.5); WHITE BLOOD COUNT 7.9 X10'3 (4.5-11.0)
[2018-09-30 19:24] LABS: ALANINE AMINOTRANSFERASE 84 U/L (12-78); ALBUMIN 4.6 G/DL (3.4-5.0); ALBUMIN/GLOBULIN RATIO 1.2 (1.1-1.5); ALKALINE PHOSPHATASE 140 IU/L (46-116); ANION GAP 8 (8-16); ASPARTATE AMINO TRANSFERASE 34 U/L (10-37); BILIRUBIN,TOTAL 0.3 MG/DL (0.1-1.0); BLOOD UREA NITROGEN 16 MG/DL (7-18); BUN/CREATININE RATIO 15.2 (6.6-38.0); CALCIUM 10.5 MG/DL (8.5-10.1); CHLORIDE 99 MMOL/L (99-107); CREATININE 1.05 MG/DL (0.40-0.90); GLUCOSE 207 MG/DL (70-104); POTASSIUM 4.3 MMOL/L (3.5-5.1); SODIUM 137 MMOL/L (135-145); TOTAL CARBON DIOXIDE 30.1 MMOL/L (24-32); TOTAL PROTEIN 8.6 G/DL (6.4-8.2); eGFR 62 ML/MIN
[2018-09-30] MEDS ORDERED: LORazepam 2 mg/ml vial IV ONE (20:05)
[2018-09-30] MEDS ORDERED: normal saline 1000ML IV soln IVB ONE ×2 (20:05)
[2018-09-30] MEDS ORDERED: diphenhydrAMINE 50 mg/ml inj IV ONE (20:05)
[2018-09-30] MEDS ORDERED: metoclopramide 5 mg/ml inj IV ONE (20:05)
[2018-09-30 20:06] LABS: URINE HCG NEGATIVE (NEG)
[2018-09-30 20:08] LABS: CLARITY,URINE CLEAR (Clear); COLOR,URINE YELLOW (Yellow); GLUCOSE, URINE 500 mg/dl (Neg); KETONES,URINE NEGATIVE (Neg); LEUKOCYTE ESTERASE ,URINE NEGATIVE (Neg); NITRITES, URINE NEGATIVE (Neg); OCCULT BLOOD,URINE NEGATIVE (Neg); PROTEIN,URINE NEGATIVE (Neg); UROBILINOGEN,URINE 0.2 E.U/dL (0.2-1.0)
[2018-09-30 20:09] LABS: UA COLLECTION TYPE CLN CATCH MIDSTREAM
[2018-09-30 20:29] VITALS: BP 128/80
[2018-09-30 20:30] LABS: LIPASE 420 U/L (73-393)
[2018-09-30] MEDS: HYDROmorphone inj. 0.5 MG/0.5 ML DISP.SYRIN IV PRN ×3 (20:42→21:59)
[2018-09-30] MEDS ORDERED: OMEP20TA23 PO (20:50)
[2018-09-30] MEDS ORDERED: QUET-1 PO (20:50)
[2018-09-30] MEDS ORDERED: BUSP10TA11 PO (20:51)
[2018-09-30] MEDS ORDERED: HYDR50CA PO (20:51)
[2018-09-30] MEDS ORDERED: DULO60CA45 PO (20:52)
[2018-09-30] MEDS ORDERED: ONDA4TAB12 PO (22:01)
== END 2018-09-30 22:09 | disposition home or self-care (01) ==
LOC: ER 18:08
DX: E86.0 Dehydration (principal); R10.11 Right upper quadrant pain; R11.2 Nausea with vomiting, unspecified; R19.7 Diarrhea, unspecified; R00.0 Tachycardia, unspecified; E11.42 Type 2 diabetes mellitus with diabetic polyneuropathy; E78.00 Pure hypercholesterolemia, unspecified; K21.9 Gastro-esophageal reflux disease without esophagitis; G89.29 Other chronic pain; Z90.49 Acquired absence of other specified parts of digestive tract; Z90.710 Acquired absence of both cervix and uterus; Z98.890 Other specified postprocedural states; Z87.891 Personal history of nicotine dependence; Z88.0 Allergy status to penicillin; Z88.8 Allergy status to other drugs, medicaments and biological substances; Z79.4 Long term (current) use of insulin; Z79.899 Other long term (current) drug therapy
CPT/HCPCS: 36415; 80053; 81003; 81025; 83690; 85025; 85610; 96361; 96374; 96375; 96376; 99283; J1170; J1200; J2060; J2765; J7030

== ENCOUNTER 2019-01-03 17:27 | Emergency (ER) | payer MEDICAID ==
[~2019-01-03] VITALS: Ht 170.2 cm; Wt 111.0 kg
[~2019-01-03 17:27] MED LIST changes: -ARIP30TA7 PO; +BUSP10TA11 PO; -DIAZ2TAB PO; +DULO60CA45 PO; -FAMO-128 PO; -FAMO20TA44 PO; -GOLYS PO; +HYDR-3965 PO; +HYDR50CA PO; -MECL-111 PO; -METO-292 PO; -OMEP20CA10 PO; +OMEP20TA23 PO; +ONDA4TAB12 PO; +ONDA4TAB6 PO; -PROC-8 PO; +QUET-1 PO; -SUCR1ORA2 PO; -TADA20TA PO; -TRAZ300T2 PO
[2019-01-03 18:14] VITALS: BP 149/103
[2019-01-03 18:26] LABS: URINE HCG NEGATIVE (NEG)
[2019-01-03 18:32] LABS: CLARITY,URINE SLIGHTLY CLOUDY (Clear); COLOR,URINE YELLOW (Yellow); GLUCOSE, URINE NEGATIVE (Neg); KETONES,URINE NEGATIVE (Neg); LEUKOCYTE ESTERASE ,URINE MODERATE (Neg); NITRITES, URINE NEGATIVE (Neg); OCCULT BLOOD,URINE TRACE-INTACT (Neg); PH,URINE 7.5 (4.8-8.0); PROTEIN,URINE NEGATIVE (Neg); UROBILINOGEN,URINE 0.2 E.U/dL (0.2-1.0)
[2019-01-03 18:33] LABS: UA COLLECTION TYPE CLN CATCH MIDSTREAM
[2019-01-03 18:39] LABS: BASOPHILS # (AUTO) 0.1 X10'3 (0-0.2); BASOPHILS % (AUTO) 0.6 % (0-1); EOSINOPHILS # (AUTO) 0.2 X10'3 (0-0.9); EOSINOPHILS % (AUTO) 2.3 % (0-6); HEMATOCRIT 38.1 % (35.0-45.0); HEMOGLOBIN 12.4 g/dl (12.0-16.0); LYMPHOCYTES # (AUTO) 2.7 X10'3 (1.1-4.8); LYMPHOCYTES % (AUTO) 29.7 % (21-51); MEAN CORPUSCULAR HEMOGLOBIN 30.1 PG (27.0-31.0); MEAN CORPUSCULAR HGB CONC 32.7 g/dL (33.0-36.5); MEAN CORPUSCULAR VOLUME 92.3 FL (78-98); MEAN PLATELET VOLUME 7.2 FL (7.4-10.4); MONOCYTES # (AUTO) 0.8 X10'3 (0-0.9); MONOCYTES % (AUTO) 8.8 % (2-12); NEUTROPHILS # (AUTO) 5.3 X10'3 (1.8-7.7); NEUTROPHILS % (AUTO) 58.6 % (42-75); PLATELET COUNT 404 X10'3 (140-440); RED BLOOD COUNT 4.12 X10'6 (4.20-5.60); RED CELL DISTRIBUTION WIDTH 13.8 % (11.5-14.5); WHITE BLOOD COUNT 9.1 X10'3 (4.5-11.0)
[2019-01-03 18:46] LABS: ALBUMIN 4.4 G/DL (3.4-5.0); ALKALINE PHOSPHATASE 118 IU/L (46-116); ANION GAP 10 (8-16); ASPARTATE AMINO TRANSFERASE 70 U/L (10-37); BILIRUBIN,TOTAL 0.4 MG/DL (0.1-1.0); BLOOD UREA NITROGEN 23 MG/DL (7-18); BUN/CREATININE RATIO 24.5 (6.6-38.0); CALCIUM 10.1 MG/DL (8.5-10.1); CHLORIDE 101 MMOL/L (99-107); CREATININE 0.94 MG/DL (0.40-0.90); GLUCOSE 146 MG/DL (70-104); LIPASE 324 U/L (73-393); SODIUM 139 MMOL/L (135-145); TOTAL CARBON DIOXIDE 27.6 MMOL/L (24-32); TOTAL PROTEIN 8.6 G/DL (6.4-8.2); eGFR 70 ML/MIN
[2019-01-03 19:05] LABS: ALANINE AMINOTRANSFERASE 138 U/L (12-78)
[2019-01-03 19:20] LABS: BACTERIA,URINE FEW /HPF (Neg); SQUAMOUS EPITHELIAL CELL,UR FEW /LPF (FEW)
[2019-01-03 19:52] LABS: PLATELET ESTIMATE NORMAL; TOTAL CELLS COUNTED 100
== END 2019-01-03 19:28 | disposition home or self-care (01) ==
LOC: ER 17:27
DX: G89.29 Other chronic pain (principal); R10.32 Left lower quadrant pain; R10.11 Right upper quadrant pain; R11.2 Nausea with vomiting, unspecified; E11.42 Type 2 diabetes mellitus with diabetic polyneuropathy; E78.00 Pure hypercholesterolemia, unspecified; K21.9 Gastro-esophageal reflux disease without esophagitis; F41.9 Anxiety disorder, unspecified; F32.9 Major depressive disorder, single episode, unspecified; Z90.49 Acquired absence of other specified parts of digestive tract; Z90.710 Acquired absence of both cervix and uterus; Z98.890 Other specified postprocedural states; Z88.0 Allergy status to penicillin; Z88.8 Allergy status to other drugs, medicaments and biological substances; Z88.6 Allergy status to analgesic agent; Z79.4 Long term (current) use of insulin; Z79.899 Other long term (current) drug therapy
CPT/HCPCS: 36415; 80053; 81001; 81025; 83690; 85025; 85610; 87077; 87088; 87186; 99283

== ENCOUNTER 2019-01-22 19:02 | Emergency (ER) | payer MEDICAID ==
[~2019-01-22] VITALS: Ht 170.2 cm; Wt 109.0 kg
[~2019-01-22 19:02] MED LIST changes: +ALLO100T PO; +ATOR20TA66 PO; +FENO145T38 CORPAK; -HYDR-3965 PO; -HYDR-4383 PO; +LEVO25TA2 PO; +NORT10CA81 PO; -ONDA4TAB12 PO; -ONDA4TAB6 PO; +PRAZ1CAP2 PO
[2019-01-22] MEDS ORDERED: dicyclomine 10mg/ml 2ml ampule IM ONE (19:30)
[2019-01-22 19:39] LABS: URINE HCG NEGATIVE (NEG)
[2019-01-22 19:40] VITALS: BP 145/96
[2019-01-22 19:44] LABS: ALANINE AMINOTRANSFERASE 107 U/L (12-78); ALBUMIN 4.2 G/DL (3.4-5.0); ALBUMIN/GLOBULIN RATIO 1.1 (1.1-1.5); ALKALINE PHOSPHATASE 108 IU/L (46-116); ANION GAP 8 (8-16); ASPARTATE AMINO TRANSFERASE 116 U/L (10-37); BILIRUBIN,TOTAL 0.4 MG/DL (0.1-1.0); BLOOD UREA NITROGEN 18 MG/DL (7-18); BUN/CREATININE RATIO 19.6 (6.6-38.0); CALCIUM 9.5 MG/DL (8.5-10.1); CHLORIDE 101 MMOL/L (99-107); CREATININE 0.92 MG/DL (0.40-0.90); GLUCOSE 272 MG/DL (70-104); LIPASE 461 U/L (73-393); POTASSIUM 3.7 MMOL/L (3.5-5.1); SODIUM 138 MMOL/L (135-145); TOTAL CARBON DIOXIDE 29.1 MMOL/L (24-32); eGFR 72 ML/MIN
[2019-01-22 19:45] LABS: BASOPHILS # (AUTO) 0.1 X10'3 (0-0.2); EOSINOPHILS # (AUTO) 0.2 X10'3 (0-0.9); EOSINOPHILS % (AUTO) 2.7 % (0-6); HEMATOCRIT 36.4 % (35.0-45.0); LYMPHOCYTES % (AUTO) 26.7 % (21-51); MEAN CORPUSCULAR HEMOGLOBIN 30.2 PG (27.0-31.0); MEAN CORPUSCULAR VOLUME 91.5 FL (78-98); MONOCYTES # (AUTO) 0.6 X10'3 (0-0.9); MONOCYTES % (AUTO) 8.3 % (2-12); NEUTROPHILS # (AUTO) 4.6 X10'3 (1.8-7.7); NEUTROPHILS % (AUTO) 61.3 % (42-75); PLATELET COUNT 347 X10'3 (140-440); RED BLOOD COUNT 3.98 X10'6 (4.20-5.60); RED CELL DISTRIBUTION WIDTH 13.2 % (11.5-14.5); WHITE BLOOD COUNT 7.5 X10'3 (4.5-11.0)
[2019-01-22 19:46] LABS: CLARITY,URINE CLEAR (Clear); COLOR,URINE YELLOW (Yellow); GLUCOSE, URINE 250 mg/dl (Neg); KETONES,URINE NEGATIVE (Neg); LEUKOCYTE ESTERASE ,URINE NEGATIVE (Neg); NITRITES, URINE NEGATIVE (Neg); OCCULT BLOOD,URINE NEGATIVE (Neg); PROTEIN,URINE NEGATIVE (Neg); UROBILINOGEN,URINE 0.2 E.U/dL (0.2-1.0)
[2019-01-22 19:48] LABS: UA COLLECTION TYPE CLN CATCH MIDSTREAM
== END 2019-01-22 20:19 | disposition home or self-care (01) ==
LOC: ER 19:02
DX: G89.29 Other chronic pain (principal); R10.13 Epigastric pain; E78.00 Pure hypercholesterolemia, unspecified; K21.9 Gastro-esophageal reflux disease without esophagitis; E11.9 Type 2 diabetes mellitus without complications; F41.9 Anxiety disorder, unspecified; F32.9 Major depressive disorder, single episode, unspecified; Z90.49 Acquired absence of other specified parts of digestive tract; Z90.710 Acquired absence of both cervix and uterus; Z98.890 Other specified postprocedural states; Z88.0 Allergy status to penicillin; Z88.6 Allergy status to analgesic agent; Z79.4 Long term (current) use of insulin; Z79.899 Other long term (current) drug therapy
CPT/HCPCS: 36415; 80053; 81003; 81025; 83690; 85025; 85610; 96372; 99283; J0500

== ENCOUNTER 2019-03-28 19:42 | Observation (INO) | payer MEDICAID ==
[~2019-03-28] VITALS: Ht 170.2 cm; Wt 104.0 kg
[2019-03-28] MEDS ORDERED: pantoprazole 40 MG vial IV ONE (20:25)
[2019-03-28] MEDS ORDERED: proCHLORperazine 10 MG/2 ml inj IV ONE (20:25)
[2019-03-28] MEDS ORDERED: morphine 4 MG/ML inj SYRINge IV ONE ×2 (20:25→21:35)
[2019-03-28] MEDS ORDERED: LORazepam 2 mg/ml vial IV ONE (20:25)
[2019-03-28] MEDS ORDERED: normal saline 1000ML IV soln IVB ONE (20:25)
[2019-03-28 20:47] LABS: BASOPHILS # (AUTO) 0.1 X10'3 (0-0.2); BASOPHILS % (AUTO) 0.9 % (0-1); EOSINOPHILS # (AUTO) 0.1 X10'3 (0-0.9); EOSINOPHILS % (AUTO) 1.2 % (0-6); HEMATOCRIT 33.8 % (35.0-45.0); HEMOGLOBIN 11.6 g/dl (12.0-16.0); LYMPHOCYTES # (AUTO) 2.6 X10'3 (1.1-4.8); LYMPHOCYTES % (AUTO) 29.1 % (21-51); MEAN CORPUSCULAR HEMOGLOBIN 30.5 PG (27.0-31.0); MEAN CORPUSCULAR HGB CONC 34.2 g/dL (33.0-36.5); MEAN PLATELET VOLUME 6.5 FL (7.4-10.4); MONOCYTES # (AUTO) 0.6 X10'3 (0-0.9); MONOCYTES % (AUTO) 6.5 % (2-12); NEUTROPHILS # (AUTO) 5.7 X10'3 (1.8-7.7); NEUTROPHILS % (AUTO) 62.3 % (42-75); PLATELET COUNT 349 X10'3 (140-440); RED CELL DISTRIBUTION WIDTH 13.4 % (11.5-14.5); WHITE BLOOD COUNT 9.1 X10'3 (4.5-11.0)
[2019-03-28 20:59] LABS: ALANINE AMINOTRANSFERASE 124 U/L (12-78); ALKALINE PHOSPHATASE 151 IU/L (46-116); ANION GAP 11 (8-16); ASPARTATE AMINO TRANSFERASE 78 U/L (10-37); BILIRUBIN,TOTAL 0.3 MG/DL (0.1-1.0); BLOOD UREA NITROGEN 12 MG/DL (7-18); BUN/CREATININE RATIO 12.4 (6.6-38.0); CALCIUM 9.6 MG/DL (8.5-10.1); CHLORIDE 100 MMOL/L (99-107); CREATININE 0.97 MG/DL (0.40-0.90); GLUCOSE 235 MG/DL (70-104); LIPASE 694 U/L (73-393); POTASSIUM 3.4 MMOL/L (3.5-5.1); SODIUM 138 MMOL/L (135-145); TOTAL CARBON DIOXIDE 27.2 MMOL/L (24-32); eGFR 68 ML/MIN
[2019-03-28 21:15] LABS: PARTIAL THROMBOPLASTIN TIME 25 SECONDS (22-32)
[2019-03-28 21:21] LABS: CLARITY,URINE CLEAR (Clear); COLOR,URINE YELLOW (Yellow); GLUCOSE, URINE 100 mg/dl (Neg); KETONES,URINE NEGATIVE (Neg); LEUKOCYTE ESTERASE ,URINE NEGATIVE (Neg); NITRITES, URINE NEGATIVE (Neg); OCCULT BLOOD,URINE NEGATIVE (Neg); PROTEIN,URINE NEGATIVE (Neg); UROBILINOGEN,URINE 0.2 E.U/dL (0.2-1.0)
[2019-03-28 21:27] LABS: UA COLLECTION TYPE CLN CATCH MIDSTREAM
[2019-03-28] MEDS ORDERED: ondansetron/PF 4mg/2ml inj IV ONE (21:35)
[2019-03-28 22:56] LABS: URINE AMPHETAMINE SCREEN NEGATIVE (Neg); URINE BARBITUATE SCREEN NEGATIVE (Neg); URINE BENZODIAZEPINES SCREEN NEGATIVE (Neg); URINE CANNABINOID SCREEN POSITIVE (Neg); URINE COCAINE SCREEN NEGATIVE (Neg); URINE METHADONE SCREEN NEGATIVE (Neg); URINE OPIATE SCREEN NEGATIVE (Neg); URINE PHENCYCLIDINE SCREEN NEGATIVE (Neg)
[2019-03-29] MEDS ORDERED: potassium CL 10mEq/100ml bag 100 ML IV PRN ×2 (01:50)
[2019-03-29] MEDS ORDERED: HYDROcodone/acetaminophen 10/325mg tab PO PRN (01:50)
[2019-03-29] MEDS ORDERED: magnesium 4gm in 100ml NS 100 ML IV PRN (01:50)
[2019-03-29] MEDS ORDERED: magnesium hydroxide 30ml (MOM) UD suspension PO PRN (01:50)
[2019-03-29] MEDS ORDERED: magnesium Cl slow-release 64mg tablet PO PRN (01:50)
[2019-03-29] MEDS ORDERED: metoclopramide 5 mg/ml inj IV PRN (01:50)
[2019-03-29] MEDS ORDERED: acetaminophen 325mg tablet PO PRN ×2 (01:50)
[2019-03-29] MEDS ORDERED: HYDROcodone/acetaminophen 5mg/325mg tablet PO PRN (01:50)
[2019-03-29] MEDS ORDERED: mag hydrox/Alum hydrox/simeth 30ml oral suspension PO PRN (01:50)
[2019-03-29] MEDS ORDERED: potassium Cl 20 mEq SR tablet PO PRN ×2 (01:50)
[2019-03-29] MEDS ORDERED: magnesium 2GM in 50ml NS 50 ML IV PRN (01:50)
[2019-03-29 02:10] LABS: HEMOGLOBIN A1C 8.9 % (4.5-6.2)
[2019-03-29 02:10] LABS: LIPASE 443 U/L (73-393)
[2019-03-29] MEDS: ondansetron/PF 4mg/2ml inj IV PRN ×2 (02:20→10:08)
[2019-03-29] MEDS: potassium Cl 20mEq in NS 1,000 ML IV SCH ×2 (02:25→11:50)
[2019-03-29] MEDS: metoprolol tartrate 12.5mg (1/2 tablet) PO SCH ×2 (02:25→07:21)
[2019-03-29 03:56] VITALS: BP 119/81
[2019-03-29] MEDS: HYDROmorphone 1 mg/ml syringe IV PRN ×2 (04:10→10:08)
--- NOTE | 2019-03-29 06:25 | NUR ---
Problems reprioritized. Patient report given, questions answered & plan of care reviewed with ADRYAN. Addendum: 03/29/19 at 0626 by Willy Fiore RN Amended: Links added.
[2019-03-29 07:13] VITALS: BP 103/61
[2019-03-29] MEDS ORDERED: K and/or MAG REPLACEMENT MC SCH (08:00)
[2019-03-29] MEDS ORDERED: FLU VACC QS2019-20 36MOS UP/PF 60 MCG/0.5 ML SYRINGE IMVAC ONE (10:00)
[2019-03-29] MEDS ORDERED: HYDR50TA65 PO (10:49)
[2019-03-29] MEDS ORDERED: PROM25TA14 PO (10:49)
[2019-03-29] MEDS ORDERED: BUSP15TA7 PO (10:49)
[2019-03-29] MEDS ORDERED: QUET200T84 PO (10:49)
[2019-03-29] MEDS ORDERED: IBUP-1985 PO (10:49)
[2019-03-29] MEDS ORDERED: INSU100I31 SQ (10:49)
[2019-03-29] MEDS ORDERED: PRAZ2CAP2 PO (10:49)
[2019-03-29] MEDS ORDERED: ONDA8TAB13 PO (10:49)
[2019-03-29] MEDS ORDERED: HYDR-3972 PO (10:49)
[2019-03-29] MEDS ORDERED: NORT50CA PO (10:49)
[2019-03-29] MEDS ORDERED: BUSP5TAB3 PO (10:50)
[2019-03-29] MEDS ORDERED: QUET25TA34 PO (10:50)
[2019-03-29] MEDS ORDERED: NORT75CA PO (10:50)
[2019-03-29] MEDS ORDERED: QUET300T19 PO (10:50)
[2019-03-29] MEDS ORDERED: CYCL-1 PO (10:50)
[2019-03-29] MEDS ORDERED: PALI117D IM (10:55)
[2019-03-29] MEDS ORDERED: OMEP40CA13 PO (10:59)
[2019-03-29] MEDS ORDERED: INSU100V5 IJ (11:01)
[2019-03-29] MEDS ORDERED: ATOR20TA66 PO (11:05)
[2019-03-29] MEDS ORDERED: FENO145T25 PO (11:05)
[2019-03-29 11:13] VITALS: BP 111/71
[2019-03-29] MEDS ORDERED: glucagon, human recombinant 1mg kit SUBCUT PRN (11:20)
[2019-03-29] MEDS ORDERED: dextrose 50%-water 50ml dispensing syringe IV PRN ×2 (11:20)
[2019-03-29] MEDS ORDERED: MESSAGE TO PHARMACY PO ONE (11:20)
[2019-03-29] MEDS ORDERED: insulin Lispro (HumaLOG) vial - multi-dose SQ SCH (11:20)
[2019-03-29] MEDS ORDERED: dextrose ORAL solution 15 GM/59 ML bottle PO PRN ×2 (11:20)
[2019-03-29] MEDS ORDERED: HYDROmorphone inj. 0.5 MG/0.5 ML DISP.SYRIN IV ONE (11:30)
[2019-03-29 11:51] LABS: ALANINE AMINOTRANSFERASE 132 U/L (12-78); ALBUMIN 3.8 G/DL (3.4-5.0); ALKALINE PHOSPHATASE 102 IU/L (46-116); ANION GAP 9 (8-16); ASPARTATE AMINO TRANSFERASE 106 U/L (10-37); BILIRUBIN,TOTAL 0.4 MG/DL (0.1-1.0); BLOOD UREA NITROGEN 10 MG/DL (7-18); BUN/CREATININE RATIO 10.9 (6.6-38.0); CALCIUM 8.6 MG/DL (8.5-10.1); CHLORIDE 106 MMOL/L (99-107); CREATININE 0.92 MG/DL (0.40-0.90); GLUCOSE 93 MG/DL (70-104); POTASSIUM 4.5 MMOL/L (3.5-5.1); SODIUM 145 MMOL/L (135-145); TOTAL CARBON DIOXIDE 30.4 MMOL/L (24-32); TOTAL PROTEIN 7.5 G/DL (6.4-8.2); eGFR 72 ML/MIN
--- NOTE | 2019-03-29 13:02 | NUR ---
Patient stable and appropriate for discharge home with sister. All belongings taken from room. IV removed, news reel cameraman removed. Discharge instructions given and reviewed with patient, diabetes survival skills given and reviewed with patient. All questions answered. Wound care pictures not retaken because they were taken <24hrs ago on admission. No new medications ordered.
--- NOTE | 2019-03-29 13:50 | NUR ---
DM consult: Pt with A1c 8.[address] able to visit. Noted that pt recently admitted and seen by [facility] 01/10/19 where pt was provided with written and verbal DM/pancreatitis educations and verbal low fat diet reinforcement with RD contact information. Addendum: 03/29/19 at [address] Amended: Links added.
[2019-03-29] MEDS ORDERED: temazepam 15mg capsule PO PRN (21:00)
[2019-03-29] MEDS ORDERED: insulin glargine (Lantus) pen - multi-dose SQ SCH (21:00)
== END 2019-03-29 12:59 | disposition home or self-care (01) ==
LOC: ER 19:44 → ED HOLD 03-29 02:06 → SUR 3N 03-29 02:07
PROVIDERS: ADMIT Family Medicine; ATTEND Family Medicine
DX: K85.90 Acute pancreatitis without necrosis or infection, unspecified (principal); R11.2 Nausea with vomiting, unspecified; E11.42 Type 2 diabetes mellitus with diabetic polyneuropathy; E78.00 Pure hypercholesterolemia, unspecified; K21.9 Gastro-esophageal reflux disease without esophagitis; M54.9 Dorsalgia, unspecified; G89.29 Other chronic pain; F41.9 Anxiety disorder, unspecified; F32.9 Major depressive disorder, single episode, unspecified; Z79.4 Long term (current) use of insulin; Z90.49 Acquired absence of other specified parts of digestive tract; Z90.710 Acquired absence of both cervix and uterus; Z87.891 Personal history of nicotine dependence; Z79.899 Other long term (current) drug therapy; Z88.0 Allergy status to penicillin; Z88.6 Allergy status to analgesic agent; Z88.8 Allergy status to other drugs, medicaments and biological substances; Z23 Encounter for immunization
CPT/HCPCS: 36415; 71045; 80053; 80305; 81003; 82948; 83036; 83690; 84484; 85025; 85610; 85730; 87081; 93005; 96361; 96374; 96375; 96376; 99284; C9113; G0008; G0378; J0780; J1170; J2060; J2270; J2405; J2765; J3480; Q2037; J1815

== ENCOUNTER 2019-08-27 20:02 | Emergency (ER) | payer MEDICAID ==
[~2019-08-27] VITALS: Ht 170.2 cm; Wt 109.0 kg
[~2019-08-27 20:02] MED LIST changes: -ALLO100T PO; +ATEN-27 PO; -ATOR20TA66 PO; -BUSP10TA11 PO; +BUSP15TA7 PO; +CYCL-1 PO; +FENO145T25 PO; -FENO145T38 CORPAK; +HYDR-3972 PO; +INSU100I31 SQ; +INSU100V5 IJ; -LANTUS SQ; -LEVO25TA2 PO; -NORT10CA81 PO; +NORT75CA PO; -OMEP20TA23 PO; +OMEP40CA13 PO; +PALI117D IM; +PIOG30TA10 PO; -PRAZ1CAP2 PO; +PRAZ2CAP2 PO; +PROM25TA14 PO; -QUET-1 PO; +QUET100T33 PO; +QUET300T19 PO
[2019-08-27] MEDS ORDERED: normal saline 1000ml 1,000 ML IVB ONE (20:29)
[2019-08-27 20:52] VITALS: BP 133/83
[2019-08-27 20:52] LABS: BASOPHILS % (AUTO) 0.4 % (0-1); EOSINOPHILS # (AUTO) 0.1 X10'3 (0-0.9); EOSINOPHILS % (AUTO) 1.2 % (0-6); HEMATOCRIT 36.2 % (35.0-45.0); HEMOGLOBIN 12.3 g/dl (12.0-16.0); LYMPHOCYTES # (AUTO) 2.5 X10'3 (1.1-4.8); LYMPHOCYTES % (AUTO) 35.6 % (21-51); MEAN CORPUSCULAR HEMOGLOBIN 30.5 PG (27.0-31.0); MEAN CORPUSCULAR HGB CONC 33.9 g/dL (33.0-36.5); MEAN CORPUSCULAR VOLUME 89.8 FL (78-98); MEAN PLATELET VOLUME 6.7 FL (7.4-10.4); MONOCYTES # (AUTO) 0.6 X10'3 (0-0.9); MONOCYTES % (AUTO) 8.1 % (2-12); NEUTROPHILS # (AUTO) 3.9 X10'3 (1.8-7.7); NEUTROPHILS % (AUTO) 54.7 % (42-75); PLATELET COUNT 338 X10'3 (140-440); RED BLOOD COUNT 4.03 X10'6 (4.20-5.60); RED CELL DISTRIBUTION WIDTH 14.3 % (11.5-14.5); WHITE BLOOD COUNT 7.1 X10'3 (4.5-11.0)
[2019-08-27 20:57] LABS: CLARITY,URINE SLIGHTLY CLOUDY (Clear); COLOR,URINE YELLOW (Yellow); GLUCOSE, URINE 500 mg/dl (Neg); KETONES,URINE NEGATIVE (Neg); LEUKOCYTE ESTERASE ,URINE TRACE (Neg); NITRITES, URINE NEGATIVE (Neg); OCCULT BLOOD,URINE NEGATIVE (Neg); PH,URINE 6.5 (4.8-8.0); PROTEIN,URINE NEGATIVE (Neg); UROBILINOGEN,URINE 0.2 E.U/dL (0.2-1.0)
[2019-08-27 20:57] LABS: ALANINE AMINOTRANSFERASE 80 U/L (12-78); ALBUMIN 4.2 G/DL (3.4-5.0); ALKALINE PHOSPHATASE 113 IU/L (46-116); AMYLASE 43 U/L (25-115); ANION GAP 7 (8-16); ASPARTATE AMINO TRANSFERASE 60 U/L (10-37); BILIRUBIN,TOTAL 0.2 MG/DL (0.1-1.0); BLOOD UREA NITROGEN 14 MG/DL (7-18); BUN/CREATININE RATIO 12.6 (6.6-38.0); CHLORIDE 101 MMOL/L (99-107); CREATININE 1.11 MG/DL (0.40-0.90); GLUCOSE 298 MG/DL (70-104); LIPASE 413 U/L (73-393); POTASSIUM 3.6 MMOL/L (3.5-5.1); SODIUM 137 MMOL/L (135-145); TOTAL CARBON DIOXIDE 29.1 MMOL/L (24-32); TOTAL PROTEIN 8.3 G/DL (6.4-8.2); eGFR 58 ML/MIN
[2019-08-27 20:59] LABS: URINE HCG NEGATIVE (NEG)
[2019-08-27 21:02] LABS: CALCIUM 9.1 MG/DL (8.5-10.1)
[2019-08-27 21:07] LABS: UA COLLECTION TYPE CLN CATCH MIDSTREAM
[2019-08-27 21:08] LABS: BACTERIA,URINE FEW /HPF (Neg); RBC,URINE NONE SEEN /HPF (0-2); SQUAMOUS EPITHELIAL CELL,UR FEW /LPF (FEW); WBC,URINE 0-4 /HPF (0-4)
[2019-08-27] MEDS ORDERED: dicyclomine 10mg/ml 2ml ampule IM ONE (21:15)
[2019-08-27] MEDS ORDERED: proCHLORperazine 10 MG/2 ml inj IV ONE (21:15)
[2019-08-27] MEDS ORDERED: normal saline 1000ML IV soln IVB ONE (21:15)
[2019-08-27] MEDS ORDERED: LORazepam 2 mg/ml vial IV ONE (21:15)
[2019-08-27] MEDS ORDERED: PROM12.512 PO (22:34)
[2019-08-27] MEDS ORDERED: morphine IR (immed. release) 30mg tablet PO PRN (22:55)
== END 2019-08-27 23:10 | disposition home or self-care (01) ==
LOC: ER 20:03
DX: G89.29 Other chronic pain (principal); R10.13 Epigastric pain; K86.1 Other chronic pancreatitis; R11.2 Nausea with vomiting, unspecified; E11.42 Type 2 diabetes mellitus with diabetic polyneuropathy; E78.00 Pure hypercholesterolemia, unspecified; K21.9 Gastro-esophageal reflux disease without esophagitis; F41.9 Anxiety disorder, unspecified; F31.9 Bipolar disorder, unspecified; F12.90 Cannabis use, unspecified, uncomplicated; Z90.49 Acquired absence of other specified parts of digestive tract; Z90.710 Acquired absence of both cervix and uterus; Z98.890 Other specified postprocedural states; Z88.0 Allergy status to penicillin; Z88.8 Allergy status to other drugs, medicaments and biological substances; Z79.4 Long term (current) use of insulin; Z79.899 Other long term (current) drug therapy
CPT/HCPCS: 80053; 81001; 81025; 82150; 83690; 85025; 87088; 96361; 96372; 96374; 96375; 99284; J0500; J0780; J2060; J7030

== ENCOUNTER 2019-10-13 15:32 | Emergency (ER) | payer MEDICAID ==
[~2019-10-13] VITALS: Ht 170.2 cm; Wt 119.0 kg
[~2019-10-13 15:32] MED LIST changes: +PROM12.512 PO
--- NOTE | 2019-10-13 15:57 | NUR ---
Patient ambulated to restroom with steady gait, slight limp due to ankle pain. Urine sample collected and sent to lab.
[2019-10-13 16:12] LABS: BASOPHILS # (AUTO) 0.1 X10'3 (0-0.2); BASOPHILS % (AUTO) 0.6 % (0-1); EOSINOPHILS # (AUTO) 0.1 X10'3 (0-0.9); EOSINOPHILS % (AUTO) 1.2 % (0-6); HEMATOCRIT 37.8 % (35.0-45.0); HEMOGLOBIN 12.4 g/dl (12.0-16.0); LYMPHOCYTES # (AUTO) 2.2 X10'3 (1.1-4.8); LYMPHOCYTES % (AUTO) 24.3 % (21-51); MEAN CORPUSCULAR HEMOGLOBIN 30.1 PG (27.0-31.0); MEAN CORPUSCULAR HGB CONC 32.8 g/dL (33.0-36.5); MEAN CORPUSCULAR VOLUME 91.9 FL (78-98); MEAN PLATELET VOLUME 6.9 FL (7.4-10.4); MONOCYTES # (AUTO) 0.7 X10'3 (0-0.9); MONOCYTES % (AUTO) 7.9 % (2-12); PLATELET COUNT 302 X10'3 (140-440); RED BLOOD COUNT 4.12 X10'6 (4.20-5.60); RED CELL DISTRIBUTION WIDTH 13.5 % (11.5-14.5); WHITE BLOOD COUNT 9.1 X10'3 (4.5-11.0)
[2019-10-13 16:17] LABS: URINE HCG NEGATIVE (NEG)
[2019-10-13 16:19] LABS: CLARITY,URINE CLOUDY (Clear); COLOR,URINE YELLOW (Yellow); GLUCOSE, URINE 250 mg/dl (Neg); KETONES,URINE NEGATIVE (Neg); LEUKOCYTE ESTERASE ,URINE NEGATIVE (Neg); NITRITES, URINE POSITIVE (Neg); OCCULT BLOOD,URINE NEGATIVE (Neg); PH,URINE 6.5 (4.8-8.0); PROTEIN,URINE NEGATIVE (Neg)
[2019-10-13 16:19] LABS: ALANINE AMINOTRANSFERASE 83 U/L (12-78); ALBUMIN 4.2 G/DL (3.4-5.0); ALBUMIN/GLOBULIN RATIO 1.1 (1.1-1.5); ALKALINE PHOSPHATASE 92 IU/L (46-116); ANION GAP 7 (8-16); ASPARTATE AMINO TRANSFERASE 71 U/L (10-37); BILIRUBIN,TOTAL 0.3 MG/DL (0.1-1.0); BLOOD UREA NITROGEN 19 MG/DL (7-18); BUN/CREATININE RATIO 16.7 (6.6-38.0); CHLORIDE 98 MMOL/L (99-107); CREATININE 1.14 MG/DL (0.40-0.90); GLUCOSE 300 MG/DL (70-104); LIPASE 309 U/L (73-393); POTASSIUM 3.5 MMOL/L (3.5-5.1); SODIUM 138 MMOL/L (135-145); TOTAL CARBON DIOXIDE 32.6 MMOL/L (24-32); eGFR 56 ML/MIN
[2019-10-13 16:24] LABS: UA COLLECTION TYPE CLN CATCH MIDSTREAM
[2019-10-13 16:25] LABS: CALCIUM 9.2 MG/DL (8.5-10.1)
[2019-10-13 16:30] LABS: RBC,URINE NONE SEEN /HPF (0-2); WBC,URINE 30-50 /HPF (0-4)
[2019-10-13] MEDS ORDERED: normal saline 1000ML IV soln IVB ONE (16:30)
[2019-10-13 16:31] LABS: BACTERIA,URINE FEW /HPF (Neg); MUCUS STRANDS FEW /LPF (Neg); SQUAMOUS EPITHELIAL CELL,UR MODERATE /LPF (FEW); WBC CLUMPS,URINE MODERATE /HPF (NEGATIVE)
[2019-10-13] MEDS ORDERED: morphine 4 MG/ML inj SYRINge IV ONE (17:55)
[2019-10-13] MEDS ORDERED: SULF1TAB49 PO (19:07)
[2019-10-13] MEDS ORDERED: PHEN-824 PO (19:07)
[2019-10-13] MEDS ORDERED: morphine 2 MG/ML inj. syringe IV ONE (19:10)
[2019-10-13 19:26] VITALS: BP 146/96
== END 2019-10-13 19:28 | disposition home or self-care (01) ==
LOC: ER 15:32
DX: N12 Tubulo-interstitial nephritis, not specified as acute or chronic (principal); R10.32 Left lower quadrant pain; R11.0 Nausea; M79.671 Pain in right foot; E11.42 Type 2 diabetes mellitus with diabetic polyneuropathy; E78.00 Pure hypercholesterolemia, unspecified; K21.9 Gastro-esophageal reflux disease without esophagitis; G89.29 Other chronic pain; F41.9 Anxiety disorder, unspecified; F32.9 Major depressive disorder, single episode, unspecified; F12.90 Cannabis use, unspecified, uncomplicated; Z87.440 Personal history of urinary (tract) infections; Z90.49 Acquired absence of other specified parts of digestive tract; Z90.710 Acquired absence of both cervix and uterus; Z98.890 Other specified postprocedural states; Z88.6 Allergy status to analgesic agent; Z88.0 Allergy status to penicillin; Z88.8 Allergy status to other drugs, medicaments and biological substances; Z79.4 Long term (current) use of insulin; Z79.899 Other long term (current) drug therapy
CPT/HCPCS: 36415; 73630; 76775; 80053; 81001; 81025; 83690; 85025; 87077; 87088; 87186; 93005; 96361; 96374; 96376; 99285; J2270; J7030; 10061

== ENCOUNTER 2019-11-13 14:56 | Emergency (ER) | payer MEDICAID ==
[~2019-11-13] VITALS: Ht 170.2 cm; Wt 120.0 kg
[~2019-11-13 14:56] MED LIST changes: +PHEN-824 PO
[2019-11-13] MEDS ORDERED: dexamethasone sod phosphate 10mg/ml inj IV STA (15:36)
[2019-11-13] MEDS ORDERED: ondansetron/PF 4mg/2ml inj IV ONE (15:40)
[2019-11-13] MEDS ORDERED: normal saline 1000ML IV soln IVB ONE (15:40)
[2019-11-13] MEDS: morphine 4 MG/ML inj SYRINge IV PRN ×2 (16:01→17:38)
[2019-11-13 16:14] LABS: BASOPHILS # (AUTO) 0.1 X10'3 (0-0.2); BASOPHILS % (AUTO) 0.8 % (0-1); EOSINOPHILS # (AUTO) 0.3 X10'3 (0-0.9); EOSINOPHILS % (AUTO) 4.2 % (0-6); HEMATOCRIT 36.2 % (35.0-45.0); HEMOGLOBIN 11.9 g/dl (12.0-16.0); LYMPHOCYTES # (AUTO) 1.7 X10'3 (1.1-4.8); MEAN CORPUSCULAR VOLUME 90.8 FL (78-98); MEAN PLATELET VOLUME 6.9 FL (7.4-10.4); MONOCYTES # (AUTO) 0.7 X10'3 (0-0.9); MONOCYTES % (AUTO) 9.2 % (2-12); NEUTROPHILS # (AUTO) 5.3 X10'3 (1.8-7.7); NEUTROPHILS % (AUTO) 64.8 % (42-75); PLATELET COUNT 273 X10'3 (140-440); RED BLOOD COUNT 3.99 X10'6 (4.20-5.60); RED CELL DISTRIBUTION WIDTH 13.2 % (11.5-14.5); WHITE BLOOD COUNT 8.1 X10'3 (4.5-11.0)
[2019-11-13 16:30] LABS: ALANINE AMINOTRANSFERASE 102 U/L (12-78); ALBUMIN 4.1 G/DL (3.4-5.0); ALBUMIN/GLOBULIN RATIO 1.1 (1.1-1.5); ALKALINE PHOSPHATASE 80 IU/L (46-116); ANION GAP 6 (8-16); ASPARTATE AMINO TRANSFERASE 89 U/L (10-37); BILIRUBIN,TOTAL 0.3 MG/DL (0.1-1.0); BLOOD UREA NITROGEN 15 MG/DL (7-18); BUN/CREATININE RATIO 13.6 (6.6-38.0); CALCIUM 9.6 MG/DL (8.5-10.1); CHLORIDE 101 MMOL/L (99-107); GLUCOSE 162 MG/DL (70-104); POTASSIUM 4.1 MMOL/L (3.5-5.1); SODIUM 139 MMOL/L (135-145); TOTAL CARBON DIOXIDE 31.9 MMOL/L (24-32); TOTAL PROTEIN 7.8 G/DL (6.4-8.2); eGFR 58 ML/MIN
[2019-11-13 16:40] LABS: TOTAL CELLS COUNTED 100
[2019-11-13 16:47] LABS: PLATELET ESTIMATE NORMAL; POLYCHROMASIA 1+
[2019-11-13 17:44] VITALS: BP 143/91
== END 2019-11-13 17:43 | disposition home or self-care (01) ==
LOC: ER 14:56
DX: M54.5 Low back pain (principal); R53.1 Weakness; R20.0 Anesthesia of skin; R42 Dizziness and giddiness; E11.42 Type 2 diabetes mellitus with diabetic polyneuropathy; E78.00 Pure hypercholesterolemia, unspecified; K21.9 Gastro-esophageal reflux disease without esophagitis; G89.29 Other chronic pain; F41.9 Anxiety disorder, unspecified; F31.9 Bipolar disorder, unspecified; F12.90 Cannabis use, unspecified, uncomplicated; Z87.440 Personal history of urinary (tract) infections; Z90.49 Acquired absence of other specified parts of digestive tract; Z90.710 Acquired absence of both cervix and uterus; Z98.890 Other specified postprocedural states; Z88.6 Allergy status to analgesic agent; Z88.0 Allergy status to penicillin; Z88.8 Allergy status to other drugs, medicaments and biological substances; Z79.4 Long term (current) use of insulin; Z79.899 Other long term (current) drug therapy
CPT/HCPCS: 36415; 80053; 84145; 85025; 85651; 96374; 96375; 96376; 99284; J1100; J2270; J2405; J7030

== ENCOUNTER 2020-01-23 06:12 | Inpatient (IN) | payer MEDICAID ==
[~2020-01-23] VITALS: Ht 170.2 cm; Wt 121.0 kg
[2020-01-23] MEDS ORDERED: ondansetron 4mg rapidly disintigrating tab PO ONE (06:45)
[2020-01-23] MEDS ORDERED: morphine 4 MG/ML inj SYRINge IM ONE (06:45)
[2020-01-23 07:32] LABS: BASOPHILS % (AUTO) 0.5 % (0-1); EOSINOPHILS # (AUTO) 0.2 X10'3 (0-0.9); EOSINOPHILS % (AUTO) 2.3 % (0-6); HEMATOCRIT 35.9 % (35.0-45.0); HEMOGLOBIN 11.8 g/dl (12.0-16.0); LYMPHOCYTES # (AUTO) 1.2 X10'3 (1.1-4.8); LYMPHOCYTES % (AUTO) 16.6 % (21-51); MEAN CORPUSCULAR HEMOGLOBIN 29.5 PG (27.0-31.0); MEAN CORPUSCULAR VOLUME 89.5 FL (78-98); MEAN PLATELET VOLUME 7.1 FL (7.4-10.4); MONOCYTES # (AUTO) 0.7 X10'3 (0-0.9); MONOCYTES % (AUTO) 9.3 % (2-12); NEUTROPHILS # (AUTO) 5.3 X10'3 (1.8-7.7); NEUTROPHILS % (AUTO) 71.3 % (42-75); PLATELET COUNT 236 X10'3 (140-440); RED BLOOD COUNT 4.01 X10'6 (4.20-5.60); RED CELL DISTRIBUTION WIDTH 15.3 % (11.5-14.5); WHITE BLOOD COUNT 7.4 X10'3 (4.5-11.0)
[2020-01-23 07:35] LABS: ALANINE AMINOTRANSFERASE 170 U/L (12-78); ALBUMIN 3.6 G/DL (3.4-5.0); ALBUMIN/GLOBULIN RATIO 0.9 (1.1-1.5); ALKALINE PHOSPHATASE 164 IU/L (46-116); ANION GAP 7 (8-16); ASPARTATE AMINO TRANSFERASE 119 U/L (10-37); BILIRUBIN,TOTAL 0.5 MG/DL (0.1-1.0); BLOOD UREA NITROGEN 6 MG/DL (7-18); BUN/CREATININE RATIO 7.9 (6.6-38.0); CALCIUM 9.2 MG/DL (8.5-10.1); CHLORIDE 97 MMOL/L (99-107); CREATININE 0.76 MG/DL (0.40-0.90); GLUCOSE 315 MG/DL (70-104); POTASSIUM 3.5 MMOL/L (3.5-5.1); SODIUM 135 MMOL/L (135-145); TOTAL CARBON DIOXIDE 31.4 MMOL/L (24-32); TOTAL PROTEIN 7.7 G/DL (6.4-8.2); eGFR 89 ML/MIN
[2020-01-23 07:36] LABS: CLARITY,URINE CLEAR (Clear); COLOR,URINE YELLOW (Yellow); GLUCOSE, URINE >=1000 mg/dl (Neg); KETONES,URINE NEGATIVE (Neg); LEUKOCYTE ESTERASE ,URINE NEGATIVE (Neg); NITRITES, URINE NEGATIVE (Neg); OCCULT BLOOD,URINE NEGATIVE (Neg); PH,URINE 6.5 (4.8-8.0); PROTEIN,URINE NEGATIVE (Neg); URINE HCG NEGATIVE (NEG); UROBILINOGEN,URINE 0.2 E.U/dL (0.2-1.0)
[2020-01-23 07:43] LABS: UA COLLECTION TYPE CLN CATCH MIDSTREAM
[2020-01-23 07:45] LABS: BACTERIA,URINE FEW /HPF (Neg); RBC,URINE NONE SEEN /HPF (0-2); SQUAMOUS EPITHELIAL CELL,UR FEW /LPF (FEW); WBC,URINE 0-4 /HPF (0-4)
[2020-01-23 08:28] LABS: LIPASE 17064 U/L (73-393)
[2020-01-23] MEDS ORDERED: morphine 4 MG/ML inj SYRINge IV ONE ×2 (08:40→09:20)
[2020-01-23] MEDS ORDERED: normal saline 1000ML IV soln IVB ONE (08:40)
--- NOTE | 2020-01-23 09:12 | NUR ---
US TECH AT BEDSIDE.
[2020-01-23] MEDS ORDERED: magnesium 2GM in 50ml NS 50 ML IV PRN (09:45)
[2020-01-23] MEDS ORDERED: magnesium Cl slow-release 64mg tablet PO PRN (09:45)
[2020-01-23] MEDS ORDERED: potassium CL 10mEq/100ml bag 100 ML IV PRN ×2 (09:45)
[2020-01-23] MEDS ORDERED: morphine 2 MG/ML inj. syringe IV PRN ×2 (09:45→15:35)
[2020-01-23] MEDS ORDERED: ondansetron/PF 4mg/2ml inj IV PRN (09:45)
[2020-01-23] MEDS ORDERED: potassium Cl 20 mEq SR tablet PO PRN ×2 (09:45)
[2020-01-23] MEDS ORDERED: magnesium 4gm in 100ml NS 100 ML IV PRN (09:45)
--- NOTE | 2020-01-23 10:34 | NUR ---
Received report from SUNDEEP Gomez. Patient to be coming to room 357 A.
--- NOTE | 2020-01-23 10:38 | NUR ---
pt is sinus tach and she states that this is normal for her when she feels anxious.
[2020-01-23 11:00] VITALS: BP 148/83
[2020-01-23] MEDS ORDERED: NORT50CA PO (11:20)
[2020-01-23] MEDS ORDERED: BUSP15TA3 PO (11:22)
[2020-01-23] MEDS: normal saline 1000ml 1,000 ML IV SCH ×2 (13:00→22:03)
[2020-01-23] MEDS ORDERED: quetiapine 100mg tablet PO PRN (15:50)
[2020-01-23] MEDS ORDERED: MESSAGE TO PHARMACY PO ONE (16:15)
[2020-01-23] MEDS ORDERED: dextrose 50%-water 50ml dispensing syringe IV PRN ×2 (16:15)
[2020-01-23] MEDS ORDERED: dextrose ORAL solution 15 GM/59 ML bottle PO PRN ×2 (16:15)
[2020-01-23] MEDS ORDERED: glucagon, human recombinant 1mg kit SUBCUT PRN (16:15)
[2020-01-23] MEDS: morphine 2 MG/ML inj. syringe IV PRN ×2 (17:07→21:58)
--- NOTE | 2020-01-23 18:22 | NUR ---
Problems reprioritized. Patient report given, questions answered & plan of care reviewed with SUNDEEP Riojas.
--- NOTE | 2020-01-23 18:30 | NUR ---
Patient in room [facility] 357. I have received report from Betsy URBANO and had the opportunity to ask questions and assume patient care.
[2020-01-23] MEDS: insulin Lispro (HumaLOG) vial - multi-dose SQ SCH (18:59)
[2020-01-23 20:00] VITALS: BP 148/83
[2020-01-23] MEDS: K and/or MAG REPLACEMENT MC SCH (20:00)
[2020-01-23] MEDS: quetiapine 100mg tablet PO SCH (21:59)
[2020-01-23] MEDS: cyclobenzaprine 10mg tablet PO SCH (21:59)
[2020-01-23] MEDS: busPIRone 15mg tablet PO SCH (21:59)
[2020-01-23] MEDS: gabapentin 400mg capsule PO SCH (22:01)
[2020-01-23 22:08] VITALS: BP 147/98
[2020-01-23] MEDS: prazosin 1mg capsule PO SCH (22:10)
[2020-01-23] MEDS: nortriptyline 25mg capsule PO SCH (22:11)
[2020-01-23] MEDS: insulin glargine (Lantus) pen - multi-dose SQ SCH (22:18)
[2020-01-24] VITALS: BP 113/56
--- NOTE | 2020-01-24 01:04 | NUR ---
Pagemiguel angel MITCHELL as patient is not holding 02 sats. on 3L, dropping down to 88/89. Also HR up to 144/145. Pt. is in no obvious respiratory distress or pain at this time. Patient is very drowsy from having pysch meds and MS. Admit DX is pancreatitis. At this time, stated "there is nothing else to do for her, the pancreatitis is what is making her HR elevated, (asked how much fluid running which is NS at 100) and the O2 sats are because of her meds. Will continue to monitor pt.
[2020-01-24] MEDS: normal saline 1000ml 1,000 ML IV SCH ×3 (05:45→22:17)
[2020-01-24 06:22] LABS: BASOPHILS % (AUTO) 0.2 % (0-1); EOSINOPHILS # (AUTO) 0.1 X10'3 (0-0.9); EOSINOPHILS % (AUTO) 1.3 % (0-6); HEMATOCRIT 33.9 % (35.0-45.0); HEMOGLOBIN 11.2 g/dl (12.0-16.0); LYMPHOCYTES % (AUTO) 13.2 % (21-51); MEAN CORPUSCULAR HEMOGLOBIN 29.7 PG (27.0-31.0); MEAN PLATELET VOLUME 7.2 FL (7.4-10.4); MONOCYTES # (AUTO) 0.6 X10'3 (0-0.9); MONOCYTES % (AUTO) 8.1 % (2-12); NEUTROPHILS # (AUTO) 5.8 X10'3 (1.8-7.7); NEUTROPHILS % (AUTO) 77.2 % (42-75); PLATELET COUNT 228 X10'3 (140-440); RED BLOOD COUNT 3.77 X10'6 (4.20-5.60); RED CELL DISTRIBUTION WIDTH 15.5 % (11.5-14.5); WHITE BLOOD COUNT 7.6 X10'3 (4.5-11.0)
[2020-01-24 06:26] LABS: ALBUMIN 3.3 G/DL (3.4-5.0); ANION GAP 5 (8-16); BLOOD UREA NITROGEN 6 MG/DL (7-18); BUN/CREATININE RATIO 7.8 (6.6-38.0); CALCIUM 8.9 MG/DL (8.5-10.1); CHLORIDE 100 MMOL/L (99-107); CREATININE 0.77 MG/DL (0.40-0.90); GLUCOSE 266 MG/DL (70-104); MAGNESIUM 1.5 MG/DL (1.5-2.4); POTASSIUM 3.9 MMOL/L (3.5-5.1); SODIUM 139 MMOL/L (135-145); TOTAL CARBON DIOXIDE 34.2 MMOL/L (24-32); eGFR 88 ML/MIN
--- NOTE | 2020-01-24 06:33 | NUR ---
Problems reprioritized. Patient report given, questions answered & plan of care reviewed with Linda URBANO.
[2020-01-24] MEDS: K and/or MAG REPLACEMENT MC SCH ×2 (06:55→20:00)
[2020-01-24 08:00] VITALS: BP 147/72
[2020-01-24] MEDS: cyclobenzaprine 10mg tablet PO SCH ×2 (08:11→19:41)
[2020-01-24] MEDS: duloxetine 30mg CAPSULE.DR PO SCH (08:12)
[2020-01-24] MEDS: gabapentin 400mg capsule PO SCH ×2 (08:12→19:41)
[2020-01-24] MEDS: atenolol 25mg tablet PO SCH (08:12)
[2020-01-24] MEDS: busPIRone 15mg tablet PO SCH ×3 (08:13→21:24)
[2020-01-24] MEDS: fenofibrate 145mg tablet PO SCH (08:13)
[2020-01-24] MEDS: insulin Lispro (HumaLOG) vial - multi-dose SQ SCH ×3 (08:25→19:11)
--- NOTE | 2020-01-24 08:38 | NUR ---
PAGER ID: [phone] MESSAGE: [id number] HIWOT JUSTO PATIENT HR IS 135 -140'S ATENOLOL GIVEN, DO YOU WANT AN EKG? DAVID [id number]
[2020-01-24 09:30] VITALS: BP 120/79
[2020-01-24] MEDS ORDERED: pneumococcal 23-VAL P-sac vacc 25 mcg/0.5ml vial IMVAC ONE (10:00)
[2020-01-24] MEDS: morphine 2 MG/ML inj. syringe IV PRN ×3 (10:18→19:46)
--- NOTE | 2020-01-24 10:23 | NUR ---
VS RECHECK AFTER ATENOLOL GIVEN AND PRIOR TO MORPHINE. Addendum: 01/24/20 at 1023 by Linda Cha RN Amended: Links added.
--- NOTE | 2020-01-24 10:52 | NUR ---
Patient in room [facility] 357. I have received report from SUNDEEP Mckeon and had the opportunity to ask questions and assume patient care.
--- NOTE | 2020-01-24 11:05 | NUR ---
Problems reprioritized. Patient report given, questions answered & plan of care reviewed with Samson URBANO.
--- NOTE | 2020-01-24 11:40 | NUR ---
DM consult: Pt with hx T2DM, current A1c is 9.0%, admit with acute pancreatitis. Attempted visit with pt at bedside however pt reports currently being in pain and declines RD visit at this time. Written DM and pancreatitis nutrition therapy educations and RD contact information left at bedside. RD encouraged pt to reach out to RD team for any questions. Will remain available. Addendum: 01/24/20 at [address] Amended: Links added.
[2020-01-24 14:33] LABS: AMYLASE 82 U/L (25-115)
[2020-01-24 14:34] LABS: LIPASE 2106 U/L (73-393)
--- NOTE | 2020-01-24 18:17 | NUR ---
Problems reprioritized. Patient report given, questions answered & plan of care reviewed with nancy tillman.
--- NOTE | 2020-01-24 18:30 | NUR ---
Patient in room [facility] 357. I have received report from Samson URBANO and had the opportunity to ask questions and assume patient care.
[2020-01-24 19:00] VITALS: BP 149/80
[2020-01-24] MEDS: prazosin 1mg capsule PO SCH (21:24)
[2020-01-24] MEDS: nortriptyline 25mg capsule PO SCH (21:24)
[2020-01-24] MEDS: quetiapine 100mg tablet PO SCH (21:24)
[2020-01-24] MEDS: insulin glargine (Lantus) pen - multi-dose SQ SCH (21:26)
[2020-01-25] VITALS (7 sets, daily range): BP systolic 116–130; BP diastolic 60–90
[2020-01-25] MEDS ORDERED: naloxone 0.4 mg/ml inj ONE (04:09)
[2020-01-25 04:36] LABS: ABG BASE EXCESS 6.8 mmol/L (-2.0-2.0); ABG HCO3 40.7 mmol/L (22.0-26.0); ABG OXYGEN SATURATION 90.3 % (94-97); ABG PCO2 (T) 134.1 mmHg (32.0-45.0); ABG PO2 (T) 65.9 mmHg (75.0-100.0); ALLEN'S TEST POSITIVE; FCOHb 0.9 % (0.0-3.9); FLOW 4 L/min; FMetHb 0.3 % (0.0-1.5); FO2Hb 89.2 % (94-97); PATIENT TEMPERATURE 36.3
[2020-01-25] MEDS ORDERED: LIDOcaine 2% 10ml TOPICAL JELLY (Urojet) TP ONE (04:40)
[2020-01-25 04:43] LABS: BASOPHILS % (AUTO) 0.1 % (0-1); EOSINOPHILS # (AUTO) 0.1 X10'3 (0-0.9); EOSINOPHILS % (AUTO) 1.4 % (0-6); HEMATOCRIT 35.4 % (35.0-45.0); HEMOGLOBIN 11.5 g/dl (12.0-16.0); LYMPHOCYTES # (AUTO) 0.6 X10'3 (1.1-4.8); LYMPHOCYTES % (AUTO) 6.8 % (21-51); MEAN CORPUSCULAR HEMOGLOBIN 30.4 PG (27.0-31.0); MEAN CORPUSCULAR HGB CONC 32.5 g/dL (33.0-36.5); MEAN CORPUSCULAR VOLUME 93.6 FL (78-98); MEAN PLATELET VOLUME 6.8 FL (7.4-10.4); MONOCYTES # (AUTO) 0.4 X10'3 (0-0.9); MONOCYTES % (AUTO) 4.5 % (2-12); NEUTROPHILS % (AUTO) 87.2 % (42-75); PLATELET COUNT 290 X10'3 (140-440); RED BLOOD COUNT 3.79 X10'6 (4.20-5.60); RED CELL DISTRIBUTION WIDTH 15.2 % (11.5-14.5); WHITE BLOOD COUNT 9.1 X10'3 (4.5-11.0)
--- NOTE | 2020-01-25 04:53 | NUR ---
Around 0415 nurse instructed that a rapid had been called on this patient as pt. was on her belly, head against rail and when tried to reposition, pt. found unresponsive, but breathing. Sternal rub - no results. HELMINTHOLOGY TEACHERSUNDEEP Colmenares came to room along with lenard khan,labs, respiratory. New orders to narcan patient. BP in the 90's, rate of saline increased. ordersd for labs, cultures, chest xray, ekg, ba catheter and to transfer to higher level of care. As calling report to REMOTE SENSING RESEARCH SCIENTISTSUNDEEP Valente, informed that patient now alert and that bp's going up from 112/59 to 132/57. Patient has since been transferred to PCU.
[2020-01-25 04:56] LABS: ALBUMIN 3.4 G/DL (3.4-5.0); AMYLASE 40 U/L (25-115); ANION GAP 1 (8-16); BLOOD UREA NITROGEN 8 MG/DL (7-18); BUN/CREATININE RATIO 7.4 (6.6-38.0); CALCIUM 9.2 MG/DL (8.5-10.1); CHLORIDE 100 MMOL/L (99-107); CREATININE 1.08 MG/DL (0.40-0.90); GLUCOSE 347 MG/DL (70-104); LIPASE 1298 U/L (73-393); POTASSIUM 4.7 MMOL/L (3.5-5.1); SODIUM 140 MMOL/L (135-145); TOTAL CARBON DIOXIDE 39.4 MMOL/L (24-32); TROPONIN I < 0.04 NG/ML (0.0-0.05); eGFR 60 ML/MIN
[2020-01-25 05:01] LABS: PLATELET ESTIMATE NORMAL; TOTAL CELLS COUNTED 100
[2020-01-25 05:02] LABS: ANISOCYTOSIS 1+; STOMATOCYTES 2+
--- NOTE | 2020-01-25 05:30 | NUR ---
promotional table spacer PAGER ID: [phone] MESSAGE: Karolyn Noman 29F admitted with acute pancreatitis, pt HR has maintained 135 for the past 40 minites thank you marcio URBANO [phone]
[2020-01-25 05:42] LABS: CLARITY,URINE CLEAR (Clear); COLOR,URINE YELLOW (Yellow); GLUCOSE, URINE 100 mg/dl (Neg); KETONES,URINE NEGATIVE (Neg); LEUKOCYTE ESTERASE ,URINE NEGATIVE (Neg); NITRITES, URINE NEGATIVE (Neg); OCCULT BLOOD,URINE NEGATIVE (Neg); PROTEIN,URINE NEGATIVE (Neg)
[2020-01-25 05:50] LABS: UA COLLECTION TYPE FOLEY CATH
--- NOTE | 2020-01-25 06:41 | NUR ---
Patient in room PCU 3012. I have received report from Mary URBANO and had the opportunity to ask questions and assume patient care. Patient awoke on report and in no apparent distress.
--- NOTE | 2020-01-25 06:41 | NUR ---
Patient in room PCU 3012. I have received report from SUNDEEP Hernandez and had the opportunity to ask questions and assume patient care. Pt sleeping comfortably, Bipap on.
[2020-01-25 07:21] LABS: ABG BASE EXCESS 11.1 mmol/L (-2.0-2.0); ABG HCO3 40.8 mmol/L (22.0-26.0); ABG OXYGEN SATURATION 92.4 % (94-97); ABG PCO2 (T) 86.1 mmHg (32.0-45.0); ABG PO2 (T) 64.5 mmHg (75.0-100.0); ALLEN'S TEST POSITIVE; FCOHb 0.5 % (0.0-3.9); FMetHb 0.1 % (0.0-1.5); FO2Hb 91.8 % (94-97); RESPIRATORY RATE 20 b/min; TIDAL VOLUME 963 mL; TOTAL HEMOGLOBIN 12.1 G/dl (12.0-16.0)
[2020-01-25] MEDS: K and/or MAG REPLACEMENT MC SCH ×2 (08:00→19:07)
[2020-01-25] MEDS: insulin Lispro (HumaLOG) vial - multi-dose SQ SCH ×3 (08:32→18:58)
[2020-01-25] MEDS: duloxetine 30mg CAPSULE.DR PO SCH (09:26)
[2020-01-25] MEDS: fenofibrate 145mg tablet PO SCH (09:26)
[2020-01-25] MEDS: busPIRone 15mg tablet PO SCH ×3 (09:26→20:45)
[2020-01-25] MEDS: cyclobenzaprine 10mg tablet PO SCH ×2 (09:27→20:45)
[2020-01-25] MEDS: atenolol 25mg tablet PO SCH (09:27)
[2020-01-25] MEDS: gabapentin 400mg capsule PO SCH ×2 (09:27→20:45)
--- NOTE | 2020-01-25 10:03 | NUR ---
F/u for educations: Per RN notes pt was found unresponsive with shallow respirations and unarousable to painful stimuli this morning and a rapid response was called. Pt currently documented as A/O x 2, f/u educations not appropriate at this time. Will continue to follow. Addendum: 01/25/20 at [address] Amended: Links added.
--- NOTE | 2020-01-25 11:22 | NUR ---
Per Dr. Ibarra orders, DC'd all pain medications and ordered ammonia and Lipase labs.
[2020-01-25 11:26] LABS: ALANINE AMINOTRANSFERASE 129 U/L (12-78); ALBUMIN 3.4 G/DL (3.4-5.0); ALBUMIN/GLOBULIN RATIO 0.8 (1.1-1.5); ALKALINE PHOSPHATASE 118 IU/L (46-116); ANION GAP 1 (8-16); ASPARTATE AMINO TRANSFERASE 64 U/L (10-37); BILIRUBIN,TOTAL 0.6 MG/DL (0.1-1.0); BLOOD UREA NITROGEN 10 MG/DL (7-18); BUN/CREATININE RATIO 13.3 (6.6-38.0); CALCIUM 9.3 MG/DL (8.5-10.1); CHLORIDE 99 MMOL/L (99-107); CREATININE 0.75 MG/DL (0.40-0.90); GLUCOSE 200 MG/DL (70-104); POTASSIUM 3.9 MMOL/L (3.5-5.1); SODIUM 140 MMOL/L (135-145); TOTAL CARBON DIOXIDE 39.6 MMOL/L (24-32); TOTAL PROTEIN 7.8 G/DL (6.4-8.2); eGFR > 90 ML/MIN
--- NOTE | 2020-01-25 11:35 | NUR ---
Paged Dr. Ibarra on pt elevated temp and no medication. Re Karolyn Tineo [id number], Pt has axillary temp 100.8 and no Tylenol ordered. Please advise, thanks Hung URBANO [phone]
[2020-01-25] MEDS: normal saline 1000ml 1,000 ML IV SCH ×2 (12:30→21:16)
[2020-01-25] MEDS ORDERED: acetaminophen 325mg tablet PO PRN (15:55)
[2020-01-25] MEDS: levoFLOXACIN-Levaquin 500mg/D5 100 ML IV SCH (17:23)
--- NOTE | 2020-01-25 18:15 | NUR ---
Problems reprioritized. Patient report given, questions answered & plan of care reviewed with SUNDEEP Kulkarni. Informed RN pt needed STAT COVID test done. All pt needs met at this time.
--- NOTE | 2020-01-25 19:00 | NUR ---
Patient in room PCU 3012. I have received report from Ju URBANO and Hung URBANO and had the opportunity to ask questions and assume patient care.
--- NOTE | 2020-01-25 19:00 | NUR ---
Obtained covid test swab sample and sent to lab, pending results.
--- NOTE | 2020-01-25 19:17 | NUR ---
Received call from lab, COVID test negative.
--- NOTE | 2020-01-25 20:00 | NUR ---
Patient returned from the labor gang supervisor at this time. She is alert and oriented and able to make her needs known. She has a fem stop in place to right groin and is instructed to lye flat for 7 hours per the MD orders. Pedal pulses intact and no bleeding or bruising noted to the cath site. Also hemostatic wrist band in place to right wrist since radial approach was initially attempted but failed. Also pressure dressing to right AC because this is where they were able to successfully cath her. She is on 2 liters oxygen nasal cannula. Vitals are stable with BP a little low SBP in the 90's but this is how she has been. She denies pain. Will continue to monitor. Addendum: 01/26/20 at 0118 by Cayla Fernandez RN Disregard note. Wrong patient.
[2020-01-25] MEDS: nortriptyline 25mg capsule PO SCH (20:45)
[2020-01-25] MEDS: quetiapine 100mg tablet PO SCH (20:45)
[2020-01-25] MEDS: prazosin 1mg capsule PO SCH (20:45)
[2020-01-25] MEDS: insulin glargine (Lantus) pen - multi-dose SQ SCH (21:13)
[2020-01-26 02:00] VITALS: BP 124/84
--- NOTE | 2020-01-26 06:08 | NUR ---
Problems reprioritized. Patient report given, questions answered & plan of care reviewed with Ju URBANO and Hung URBANO.
--- NOTE | 2020-01-26 06:10 | NUR ---
Patient in room PCU 3012. I have received report from Cayla URBANO and had the opportunity to ask questions and assume patient care. Patient asleep on report and in no apparent distress.
[2020-01-26 06:23] LABS: BASOPHILS % (AUTO) 0.5 % (0-1); EOSINOPHILS # (AUTO) 0.2 X10'3 (0-0.9); EOSINOPHILS % (AUTO) 2.6 % (0-6); HEMOGLOBIN 11.5 g/dl (12.0-16.0); LYMPHOCYTES # (AUTO) 1.7 X10'3 (1.1-4.8); LYMPHOCYTES % (AUTO) 21.7 % (21-51); MEAN CORPUSCULAR HEMOGLOBIN 29.8 PG (27.0-31.0); MEAN CORPUSCULAR HGB CONC 32.7 g/dL (33.0-36.5); MEAN CORPUSCULAR VOLUME 91.2 FL (78-98); MONOCYTES # (AUTO) 0.6 X10'3 (0-0.9); MONOCYTES % (AUTO) 7.7 % (2-12); NEUTROPHILS # (AUTO) 5.2 X10'3 (1.8-7.7); NEUTROPHILS % (AUTO) 67.5 % (42-75); PLATELET COUNT 262 X10'3 (140-440); RED BLOOD COUNT 3.84 X10'6 (4.20-5.60); RED CELL DISTRIBUTION WIDTH 15.2 % (11.5-14.5); WHITE BLOOD COUNT 7.7 X10'3 (4.5-11.0)
--- NOTE | 2020-01-26 06:31 | NUR ---
Patient in room PCU 3012. I have received report from SUNDEEP Kulkarni and had the opportunity to ask questions and assume patient care. Pt sleeping comfortably at bedside report.
[2020-01-26 06:48] LABS: ALBUMIN 3.3 G/DL (3.4-5.0); AMYLASE 37 U/L (25-115); ANION GAP 3 (8-16); BLOOD UREA NITROGEN 15 MG/DL (7-18); BUN/CREATININE RATIO 22.4 (6.6-38.0); CALCIUM 9.3 MG/DL (8.5-10.1); CHLORIDE 100 MMOL/L (99-107); CREATININE 0.67 MG/DL (0.40-0.90); GLUCOSE 206 MG/DL (70-104); LIPASE 757 U/L (73-393); MAGNESIUM 1.7 MG/DL (1.5-2.4); POTASSIUM 3.3 MMOL/L (3.5-5.1); SODIUM 140 MMOL/L (135-145); TOTAL CARBON DIOXIDE 36.6 MMOL/L (24-32); eGFR > 90 ML/MIN
[2020-01-26 07:00] VITALS: BP 107/57
[2020-01-26] MEDS: cyclobenzaprine 10mg tablet PO SCH (08:09)
[2020-01-26] MEDS: gabapentin 400mg capsule PO SCH (08:10)
[2020-01-26] MEDS: atenolol 25mg tablet PO SCH (08:10)
[2020-01-26] MEDS: duloxetine 30mg CAPSULE.DR PO SCH (08:10)
[2020-01-26] MEDS: levoFLOXACIN-Levaquin 500mg/D5 100 ML IV SCH (08:11)
[2020-01-26] MEDS: fenofibrate 145mg tablet PO SCH (08:11)
[2020-01-26] MEDS: busPIRone 15mg tablet PO SCH ×2 (08:11→13:01)
[2020-01-26] MEDS: normal saline 1000ml 1,000 ML IV SCH (08:13)
[2020-01-26] MEDS: K and/or MAG REPLACEMENT MC SCH (08:13)
[2020-01-26] MEDS: insulin Lispro (HumaLOG) vial - multi-dose SQ SCH ×2 (08:23→13:07)
[2020-01-26 09:40] LABS: ABG BASE EXCESS 12.2 mmol/L (-2.0-2.0); ABG HCO3 38.8 mmol/L (22.0-26.0); ABG OXYGEN SATURATION 91.1 % (94-97); ABG PCO2 (T) 60.4 mmHg (32.0-45.0); ABG PO2 (T) 55.6 mmHg (75.0-100.0); ALLEN'S TEST POSITIVE; FCOHb 0.5 % (0.0-3.9); FO2Hb 90.6 % (94-97); TOTAL HEMOGLOBIN 12.3 G/dl (12.0-16.0)
[2020-01-26 11:00] VITALS: BP 146/96
[2020-01-26 15:00] VITALS: BP 131/88
[2020-01-26] MEDS ORDERED: magnesium 4gm in 100ml NS 100 ML IV PRN (15:10)
[2020-01-26] MEDS ORDERED: potassium CL 10mEq/100ml bag 100 ML IV PRN ×2 (15:10)
[2020-01-26] MEDS ORDERED: magnesium Cl slow-release 64mg tablet PO PRN (15:10)
[2020-01-26] MEDS ORDERED: potassium Cl 20 mEq SR tablet PO PRN ×2 (15:10)
[2020-01-26] MEDS ORDERED: magnesium 2GM in 50ml NS 50 ML IV PRN (15:10)
--- NOTE | 2020-01-26 15:51 | NUR ---
F/u (01/25): Pt not appropriate for ed at this time. [facility] spok.adriana MITCHELL regarding lipid panel given lipase remains relatively normal w/ pancreatitis DX and not checked yet this admit. Addendum: 01/26/20 at [address] Amended: Links added.
--- NOTE | 2020-01-26 16:22 | NUR ---
Paged Dr Ibarra regarding patient wanting to leave AMA PAGER ID: [phone] MESSAGE: Re: Noman Karolyn [phone] Pt wants to leave AMA. Thanks Ju [place] [phone]
--- NOTE | 2020-01-26 17:12 | NUR ---
Pt left AMA, paged Dr Ibarra to inform of pt's decision. PIV discontinued, cannula intact. Tele discontinued, telesales representative notified. All belongings collected and sent with pt. Wheeled to lobby, pt waiting for her to pick her up.
[2020-02-17] MEDS ORDERED: paliperidone palmitate 156 mg/ml inj.**IM only IM SCH (08:00)
== END 2020-01-26 17:14 | disposition left against medical advice (07) | DRG 282 ==
LOC: ER 06:12 → ED HOLD 09:45 → SUR 3N 11:12 → PCU 3S 01-25 04:45
PROVIDERS: ADMIT Internal Medicine; ATTEND Internal Medicine
PROC: 5A09357 Assistance with Respiratory Ventilation, Less than 24 Consecutive Hours, Continuous Positive Airway Pressure (ICD-10-PCS; principal; 2020-01-25)
DX: K85.90 Acute pancreatitis without necrosis or infection, unspecified (principal); E11.42 Type 2 diabetes mellitus with diabetic polyneuropathy; A41.9 Sepsis, unspecified organism; E78.00 Pure hypercholesterolemia, unspecified; F31.9 Bipolar disorder, unspecified; I10 Essential (primary) hypertension; E78.5 Hyperlipidemia, unspecified; Z53.29 Procedure and treatment not carried out because of patient's decision for other reasons; K21.9 Gastro-esophageal reflux disease without esophagitis; J96.00 Acute respiratory failure, unspecified whether with hypoxia or hypercapnia; G47.30 Sleep apnea, unspecified; K86.1 Other chronic pancreatitis; F12.90 Cannabis use, unspecified, uncomplicated; F41.9 Anxiety disorder, unspecified; G89.29 Other chronic pain; K76.9 Liver disease, unspecified; M54.9 Dorsalgia, unspecified; Z79.4 Long term (current) use of insulin; Z90.710 Acquired absence of both cervix and uterus; Z28.21 Immunization not carried out because of patient refusal; Z88.0 Allergy status to penicillin; Z88.8 Allergy status to other drugs, medicaments and biological substances; Z90.49 Acquired absence of other specified parts of digestive tract
CPT/HCPCS: 36415; 36600; 71045; 76700; 76937; 80048; 80053; 81001; 81003; 81025; 82140; 82150; 82803; 82948; 83036; 83605; 83690; 83735; 84100; 84484; 85018; 85025; 87040; 87081; 87635; 93005; 94660; 94760; 96361; 96372; 96374; 96376; 99285; G0378; J1815; J1956; J2270; J2310; J2405; J7030

== ENCOUNTER 2020-11-29 16:12 | Emergency (ER) | payer MEDICAID ==
[~2020-11-29] VITALS: Ht 170.2 cm; Wt 118.2 kg
[~2020-11-29 16:12] MED LIST changes: +BUSP15TA3 PO; -BUSP15TA7 PO; -HYDR50CA PO; +NORT50CA PO; -NORT75CA PO; -PHEN-824 PO; -PIOG30TA10 PO; -PROM12.512 PO; -PROM25TA14 PO
[2020-11-29 16:47] LABS: CLARITY,URINE CLOUDY (Clear); COLOR,URINE YELLOW (Yellow); GLUCOSE, URINE 500 mg/dl (Neg); KETONES,URINE NEGATIVE (Neg); LEUKOCYTE ESTERASE ,URINE NEGATIVE (Neg); NITRITES, URINE NEGATIVE (Neg); OCCULT BLOOD,URINE NEGATIVE (Neg); PROTEIN,URINE 100 mg/dl (Neg); UROBILINOGEN,URINE 0.2 E.U/dL (0.2-1.0)
[2020-11-29 16:52] LABS: UA COLLECTION TYPE CLN CATCH MIDSTREAM
[2020-11-29 17:01] LABS: SQUAMOUS EPITHELIAL CELL,UR MANY /LPF (FEW)
[2020-11-29 17:02] LABS: BACTERIA,URINE 2+ /HPF (Neg); MUCUS STRANDS FEW /LPF (Neg)
[2020-11-29 17:03] LABS: RBC,URINE 0-2 /HPF (0-2); WBC,URINE 0-4 /HPF (0-4)
[2020-11-29 17:05] LABS: URINE HCG NEGATIVE (NEG)
--- NOTE | 2020-11-29 23:17 | NUR ---
assisted Dr Palumbo with rectal examine, pt any well. Neurotele set up for evaluation.
--- NOTE | 2020-11-29 23:21 | NUR ---
DR. STERN IN TO DO RECTAL EXAM. CHAPRONED BY BABITA RN, AND RN. STEPHEN LEIVA TO ORDER SADIA EMDS AND ANTINAUSEA AND TELE NEURO CONSULT.
--- NOTE | 2020-11-29 23:27 | NUR ---
Pt reports he symptoms came on about 2 pm this afternoon. she reports numbness from the hips down bilaterally. states she can stand up and take some steps but then "my legs give out on me and i fall down". States she feel down a few times today. 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 Also reports concerns for urinary retention as she voided when she arrived at 4 pm today but has not voided since.
--- NOTE | 2020-11-29 23:29 | NUR ---
Tele Neuro consult in progress now.
[2020-11-30 02:01] VITALS: BP 123/87
--- NOTE | 2020-11-30 02:07 | NUR ---
dr. morejon updated that pt had requested pain meds and anti nausea meds earlier. Verbal received for juliann. reports at this time he is not ordering any narcotics. HR remains elevated, 117, otherwise vss.
--- NOTE | 2020-11-30 02:17 | NUR ---
Pt reports she is no longer nauseus. Provided ice water. states she is unable to ambulate dt the numbness and weakness in her legs. States some of the symptoms are similar to when she was diagnosed with Sil-Ragan. States the pain to her legs is 8. She requests to talk with the MD and if we are not going to keep her here she would like to leave.
--- NOTE | 2020-11-30 02:40 | NUR ---
DR. STERN TALKING WITH PT ABOUT KEEPING HER IN ER TO HAVE MRI IN AM, BUT THAT SHE WOULD NOT BE ADMITTED. PT REPORTING SHE REQUIRES ATIVAN OR "TO BE KNOCKED OUT" FOR ANY MRI D/T HER CLOSTROPHOBIA. TOLD HER HE COULD GIVE HER BENEDRYL, BUT WOULD NOT GIVE HER ANYTHING ELSE, BUT THAT SHE COULD DISCHARGE AND FOLLOW UP WITH HER PCP TO HAVE OUTPATIENT MRI, WE DO NOT HAVE MRI AT NIGHT. PT STATED SHE WOULD PREFERE TO BE DISCHARGED SHE WOULD NTO TOLERATE THE MRI.
== END 2020-11-30 03:07 | disposition home or self-care (01) ==
LOC: ER 16:14
DX: M54.5 Low back pain (principal); R53.1 Weakness; G89.29 Other chronic pain; E11.42 Type 2 diabetes mellitus with diabetic polyneuropathy; E78.00 Pure hypercholesterolemia, unspecified; K21.9 Gastro-esophageal reflux disease without esophagitis; F41.9 Anxiety disorder, unspecified; F31.9 Bipolar disorder, unspecified; F12.90 Cannabis use, unspecified, uncomplicated; Z87.440 Personal history of urinary (tract) infections; Z90.49 Acquired absence of other specified parts of digestive tract; Z90.710 Acquired absence of both cervix and uterus; Z98.890 Other specified postprocedural states; Z88.8 Allergy status to other drugs, medicaments and biological substances; Z88.0 Allergy status to penicillin; Z88.6 Allergy status to analgesic agent; Z79.4 Long term (current) use of insulin; Z79.899 Other long term (current) drug therapy
CPT/HCPCS: 81001; 81025; 99283